=== PATIENT | male | born 1955 | race Hispanic/Latino ===

== ENCOUNTER 2019-01-29 06:00 | Day surgery (SDC) | payer BC ==
[2019-01-27 09:34] LABS: POTASSIUM 4.7 mmol/L (3.5-5.1)
[2019-01-27 09:36] LABS: BASOPHILS % (AUTO) 0.6 % (0.0-5.0); EOSINOPHILS % (AUTO) 2.8 % (0.0-8.0); HEMATOCRIT 45.6 % (42-54); MEAN CORPUSCULAR HEMOGLOBIN 31.8 pg (27.0-33.0); NEUTROPHILS % (AUTO) 48.6 % (40.0-77.0); NUCLEATED RED BLOOD CELLS 0.1 % (0.0-0.19); PLATELET COUNT (AUTO) 270 K/uL (130-400); RED BLOOD CELL COUNT(AUTO) 5.01 MIL/uL (4.50-6.20); RED CELL DISTRIBUTION WIDTH 12.3 % (11.0-15.5); WHITE BLOOD COUNT (AUTO) 5.1 K/uL (4.8-10.8)
[2019-01-27 09:37] VITALS: BP 160/88
[2019-01-27 09:48] LABS: INR 0.96 (0.85-1.15); PARTIAL THROMBOPLASTIN TIME 26.4 SEC (26.3-35.5); PROTHROMBIN TIME 10.1 SEC (9.6-11.6)
[~2019-01-29] VITALS: Ht 180.3 cm; Wt 112.0 kg
[2019-01-29] VITALS (10 sets, daily range): BP systolic 112–165; BP diastolic 74–97
[~2019-01-29 06:00] MED LIST: ASPI-555 PO; SOTA80TA PO
[2019-01-29] MEDS ORDERED: SODIUM CHLORIDE 0.9% 1000ML 1,000 ML IV PRN (06:30)
[2019-01-29] MEDS ORDERED: LIDOCAINE HCL 2% 20ML ONE (07:18)
--- NOTE | 2019-01-29 10:25 | NUR ---
PROCEDURE PT TAKEN TO [facility] [facility] FOR SVT ABLATION VIA BED,NO DISTRESS NOTED. SPOUSE AT BEDSIDE.
[2019-01-29] MEDS ORDERED: ISOPROTERENOL HCL 0.2 MG/ML AMP/VIAL/BAG ONE (10:52)
[2019-01-29] MEDS ORDERED: MEPERIDINE-PF 25 MG/ML SYG ONE (11:11)
[2019-01-29] MEDS ORDERED: MIDAZOLAM HCL 1 MG/ML 2ML VIAL ONE (11:11)
[2019-01-29] MEDS ORDERED: ADENOSINE 3 MG/ML 2ML VIAL IV ONE (12:09)
[2019-01-29] MEDS ORDERED: VERA180T8 PO (13:11)
--- NOTE | 2019-01-29 17:00 | NUR ---
PT DISCHARGED HOME, TOLERATING FLUIDS/FOOD WELL, AMBULATING WELL, VOIDED PRIOR TO DISCHARGE. PT DENIES ANY PAIN, NAUSEA OR DIZZINESS. RIGHT AND LEFT CATHETER GROIN SITE REMAIN, SOFT, NON-TENDER WITHOUT SIGNS OF BLEEDING. PT INSTRUCTED IN ROUTINE AND EMERGENCY CARE OF CATHETER SITE. PRESCRIPTION GIVEN TO SPOUSE. PT AND SPOUSE INSTRUCTED IN NEW MEDICATION REGIME. PT AND SPOUSE REPORT NO FURTHER QUESTIONS AT THIS TIME.
== END 2019-01-29 17:00 | disposition home or self-care (01) ==
LOC: DAH 06:00
PROVIDERS: ATTEND Internal Medicine Cardiovascular Disease
DX: I47.1 Supraventricular tachycardia (principal); I48.91 Unspecified atrial fibrillation; Z98.890 Other specified postprocedural states
CPT/HCPCS: 36415; 80048; 85025; 85610; 85730; 93620; 93621; 93623; A4606; A4649; C1730 ×4; C1894 ×5; J0153; J1644 ×2; J2175; J2250; J3490 ×2; J7030; 99156; 99157

== ENCOUNTER 2019-02-03 13:17 | Emergency (ER) | payer BC ==
[~2019-02-03 13:17] MED LIST changes: -SOTA80TA PO; +VERA180T8 PO
[2019-02-03] MEDS ORDERED: ADENOSINE 3 MG/ML 2ML VIAL IV ONE (13:31)
[2019-02-03 13:49] LABS: BASOPHILS % (AUTO) 0.8 % (0.0-5.0); HEMATOCRIT 46.7 % (42-54)
[2019-02-03 13:54] LABS: EOSINOPHILS % (AUTO) 1.8 % (0.0-8.0); LYMPHOCYTES % (AUTO) 36.8 % (21.0-51.0); MEAN CORPUSCULAR HEMOGLOBIN 31.7 pg (27.0-33.0); MEAN CORPUSCULAR HGB CONC 35.1 g/dL (32.0-36.0); MEAN CORPUSCULAR VOLUME 90.4 fL (79-99); MONOCYTES % (AUTO) 9.5 % (3.0-13.0); NEUTROPHILS % (AUTO) 51.1 % (40.0-77.0); NUCLEATED RED BLOOD CELLS 0.1 % (0.0-0.19); PLATELET COUNT (AUTO) 202 K/uL (130-400); RED BLOOD CELL COUNT(AUTO) 5.17 MIL/uL (4.50-6.20); RED CELL DISTRIBUTION WIDTH 12.7 % (11.0-15.5); WHITE BLOOD COUNT (AUTO) 5.9 K/uL (4.8-10.8)
[2019-02-03 13:55] LABS: CREATININE 1.1 mg/dL (0.5-1.5); MAGNESIUM 1.9 mg/dL (1.80-2.40)
== END 2019-02-03 16:41 | disposition home or self-care (01) ==
LOC: EDH 13:17
DX: I47.1 Supraventricular tachycardia (principal); I10 Essential (primary) hypertension; Z87.891 Personal history of nicotine dependence
CPT/HCPCS: 36415; 80048; 83735; 85025; 93005; J0153

== ENCOUNTER 2020-07-09 16:44 | Emergency (ER) | payer BC ==
[~2020-07-09 16:44] MED LIST changes: -ASPI-555 PO; +ASPI-556 PO; +VERA180T12 PO; -VERA180T8 PO
[2020-07-09] MEDS ORDERED: ADENOSINE 3 MG/ML 2ML VIAL IV ONE (16:55)
[2020-07-09 17:01] LABS: BASOPHILS % (AUTO) 0.8 % (0.0-5.0); EOSINOPHILS % (AUTO) 2.5 % (0.0-8.0); HEMATOCRIT 40.8 % (42-54); LYMPHOCYTES % (AUTO) 38.1 % (21.0-51.0); MEAN CORPUSCULAR HEMOGLOBIN 31.5 pg (27.0-33.0); MEAN CORPUSCULAR HGB CONC 35.5 g/dL (32.0-36.0); MEAN CORPUSCULAR VOLUME 88.7 fL (79-99); MONOCYTES % (AUTO) 9.4 % (3.0-13.0); NEUTROPHILS % (AUTO) 48.9 % (40.0-77.0); PLATELET COUNT (AUTO) 229 K/uL (130-400); RED CELL DISTRIBUTION WIDTH 13.4 % (11.0-15.5); WHITE BLOOD COUNT (AUTO) 6.5 K/uL (4.8-10.8)
[2020-07-09 17:15] LABS: CREATININE 1.2 mg/dL (0.5-1.5); POTASSIUM 3.8 mmol/L (3.5-5.1)
[2020-07-09 17:20] LABS: ALBUMIN 3.9 g/dL (3.5-5.0); BILIRUBIN,TOTAL 0.7 mg/dL (0.2-1.0); TOTAL PROTEIN, SERUM 7.9 g/dL (6.0-8.3)
[2020-07-13] MEDS ORDERED: LISI-613 PO (00:47)
[2020-07-13] MEDS ORDERED: METO-391 (00:47)
== END 2020-07-09 19:14 | disposition home or self-care (01) ==
LOC: EDH 16:44
DX: I47.1 Supraventricular tachycardia (principal); J12.89 Other viral pneumonia; Z20.828 Contact with and (suspected) exposure to other viral communicable diseases; I10 Essential (primary) hypertension; Z87.891 Personal history of nicotine dependence
CPT/HCPCS: 36415; 71045; 80053; 82550; 84484; 85025; 93005 ×2; 96374; 99285; J0153; U0003

== ENCOUNTER 2020-07-12 13:48 | Observation (INO) | payer BC ==
[~2020-07-12] VITALS: Ht 177.8 cm; Wt 104.2 kg
[2020-07-12] MEDS ORDERED: ADENOSINE 3 MG/ML 2ML VIAL IV ONE (13:56)
[2020-07-12] MEDS ORDERED: ASPIRIN 325 MG TABLET ONE (14:01)
[2020-07-12 14:12] LABS: BASOPHILS % (AUTO) 0.7 % (0.0-5.0); EOSINOPHILS % (AUTO) 2.2 % (0.0-8.0); HEMATOCRIT 44.6 % (42-54); LYMPHOCYTES % (AUTO) 39.6 % (21.0-51.0); MEAN CORPUSCULAR HEMOGLOBIN 31.5 pg (27.0-33.0); MEAN CORPUSCULAR HGB CONC 35.7 g/dL (32.0-36.0); MEAN CORPUSCULAR VOLUME 88.5 fL (79-99); MONOCYTES % (AUTO) 7.1 % (3.0-13.0); NEUTROPHILS % (AUTO) 50.1 % (40.0-77.0); PLATELET COUNT (AUTO) 287 K/uL (130-400); RED BLOOD CELL COUNT(AUTO) 5.04 MIL/uL (4.50-6.20); RED CELL DISTRIBUTION WIDTH 13.3 % (11.0-15.5); WHITE BLOOD COUNT (AUTO) 10.1 K/uL (4.8-10.8)
[2020-07-12 14:34] LABS: CREATININE 1.3 mg/dL (0.5-1.5); INR 0.93 (0.85-1.15); PARTIAL THROMBOPLASTIN TIME 25.5 SEC (26.3-35.5); POTASSIUM 3.7 mmol/L (3.5-5.1); PROTHROMBIN TIME 10.1 SEC (9.6-11.6)
[2020-07-12 14:39] LABS: ALBUMIN 4.7 g/dL (3.5-5.0); BILIRUBIN,TOTAL 0.9 mg/dL (0.2-1.0); MAGNESIUM 1.7 mg/dL (1.80-2.40)
[2020-07-12 14:52] LABS: B-TYPE NATRIURETIC PEPTIDE 116 pg/mL (0-100)
[2020-07-12] MEDS ORDERED: MAGNESIUM 2GM PREMIX 50ML 50 ML IV PRN (15:45)
[2020-07-12] MEDS ORDERED: NITROGLYCERIN 0.4 MG SL TAB SL PRN (15:45)
[2020-07-12] MEDS ORDERED: ACETAMINOPHEN 325 MG TAB PO PRN ×2 (15:45)
[2020-07-12] MEDS ORDERED: ONDANSETRON HCL 4 MG/2 ML VIAL IV PRN (15:45)
[2020-07-12] MEDS: FUROSEMIDE 20 MG TABLET PO SCH (16:30)
[2020-07-12] MEDS ORDERED: HYDRALAZINE HCL 20 MG/ML VIAL IV PRN (16:30)
[2020-07-12] MEDS ORDERED: FUROSEMIDE 10 MG/ML 2ML VIAL ONE (17:16)
[2020-07-12] MEDS ORDERED: METOPROLOL TARTRATE 25 MG TAB ONE (17:17)
[2020-07-12] MEDS ORDERED: ENOXAPARIN SODIUM 40 MG/0.4 ML SYRINGE SQ ONE (17:17)
[2020-07-12 17:20] LABS: CHOLESTEROL 191 mg/dL (<200); HDL CHOLESTEROL 100 mg/dL (29-71); LDL DIRECT 116 mg/dL (0-99); TRIGLYCERIDES 218 mg/dL (30-200)
[2020-07-12] MEDS ORDERED: ATORVASTATIN CALCIUM 20 MG TABLET ONE (20:53)
[2020-07-12] MEDS ORDERED: MAGNESIUM 2GM PREMIX 50ML 50 ML IV ONE (20:53)
[2020-07-12] MEDS: METOPROLOL TARTRATE 25 MG TAB PO SCH (21:00)
[2020-07-12] MEDS: ATORVASTATIN CALCIUM 20 MG TABLET PO SCH (21:00)
[2020-07-12] MEDS ORDERED: FUROSEMIDE 20 MG TABLET ONE (22:55)
--- NOTE | 2020-07-13 | NUR ---
Pt arrived to unit in stable condition. pt was placed on telemetry and verified with monitors he is on and in SR. he was given unit and room orientation and admission was completed. Pt is A&Ox3. Pt reports no pain or discomfort. will continue to monitor
[2020-07-13] MEDS ORDERED: METO-391 ×2 (00:47)
[2020-07-13] MEDS ORDERED: LISI-613 PO ×2 (00:47)
[2020-07-13 00:49] VITALS: BP 136/80
[2020-07-13 02:27] LABS: BASOPHILS % (AUTO) 1.1 % (0.0-5.0); EOSINOPHILS % (AUTO) 4.1 % (0.0-8.0); HEMATOCRIT 41.9 % (42-54); LYMPHOCYTES % (AUTO) 48.4 % (21.0-51.0); MEAN CORPUSCULAR HEMOGLOBIN 31.8 pg (27.0-33.0); MEAN CORPUSCULAR HGB CONC 35.8 g/dL (32.0-36.0); MONOCYTES % (AUTO) 8.3 % (3.0-13.0); NEUTROPHILS % (AUTO) 37.9 % (40.0-77.0); PLATELET COUNT (AUTO) 195 K/uL (130-400); RED BLOOD CELL COUNT(AUTO) 4.71 MIL/uL (4.50-6.20); RED CELL DISTRIBUTION WIDTH 13.6 % (11.0-15.5); WHITE BLOOD COUNT (AUTO) 5.7 K/uL (4.8-10.8)
[2020-07-13 02:37] LABS: CRP QUANTITATIVE 11.7 mg/L (0.00-9.0); MAGNESIUM 2.4 mg/dL (1.80-2.40); POTASSIUM 3.9 mmol/L (3.5-5.1)
[2020-07-13 04:00] VITALS: BP 133/72
[2020-07-13] MEDS: FUROSEMIDE 20 MG TABLET PO SCH ×2 (04:02→15:52)
[2020-07-13 08:34] VITALS: BP 124/80
[2020-07-13] MEDS ORDERED: ASPIRIN 325 MG TABLET PO SCH (09:00)
[2020-07-13] MEDS: ENOXAPARIN SODIUM 40 MG/0.4 ML SYRINGE SQ SCH (11:02)
[2020-07-13] MEDS ORDERED: ASPIRIN 81MG TAB.CHEW ONE (11:04)
[2020-07-13] MEDS: METOPROLOL TARTRATE 25 MG TAB PO SCH (11:32)
[2020-07-13 12:20] VITALS: BP 148/95
--- NOTE | 2020-07-13 15:15 | NUR ---
LISA NOTE/IA UNABLE TO SPEAK TO PATIENT IN ROOM, NEXT OF KIN CALLED, [facility]. PER SPOUSE, PATIENT LIVES WITH HER AND THEIR CHILDREN, NO DME IN USE, NO PROVIDER SERVICES, PATIENT IS INDEPENDENT AND DRIVES, HAS USE OF [facility] IN [place] AND FEELS SAFE FOR PATIENT TO RETURN HOME ONCE STABLE. Addendum: 07/13/20 at 1731 by JAQUELINE HARRISON RN CM Amended: Links added.
[2020-07-13] MEDS: VERAPAMIL HCL 240 MG SRTAB PO SCH (15:52)
[2020-07-13 16:35] VITALS: BP 115/82
[2020-07-13 20:46] VITALS: BP 139/84
[2020-07-13] MEDS: ATORVASTATIN CALCIUM 20 MG TABLET PO SCH (21:00)
[2020-07-14 00:02] VITALS: BP 136/76
[2020-07-14 04:10] LABS: CRP QUANTITATIVE 10.4 mg/L (0.00-9.0)
[2020-07-14 04:17] VITALS: BP 120/73
[2020-07-14 04:50] LABS: CREATININE 1.2 mg/dL (0.5-1.5); MAGNESIUM 2.1 mg/dL (1.80-2.40); POTASSIUM 3.9 mmol/L (3.5-5.1)
[2020-07-14 08:43] VITALS: BP 118/75
[2020-07-14] MEDS ORDERED: FUROSEMIDE 20 MG TABLET PO SCH (09:00)
[2020-07-14] MEDS: VERAPAMIL HCL 240 MG SRTAB PO SCH (09:30)
[2020-07-14] MEDS: ENOXAPARIN SODIUM 40 MG/0.4 ML SYRINGE SQ SCH (09:31)
[2020-07-14 11:24] VITALS: BP 132/79
[2020-08-24] MEDS ORDERED: METO-408 PO (13:45)
[2020-08-24] MEDS ORDERED: VERA360C2 PO (13:45)
== END 2020-07-14 11:45 | disposition home or self-care (01) ==
LOC: EDH 13:48 → EDHIP 15:31 → UNDOADMOB 16:54 → EDHIP 16:54 → 4DH 07-13 00:29 → EDHIP 07-13 00:29
PROVIDERS: ADMIT Hospitalist; ATTEND Hospitalist
DX: I47.1 Supraventricular tachycardia (principal); J12.89 Other viral pneumonia; E83.42 Hypomagnesemia; E66.01 Morbid (severe) obesity due to excess calories; I10 Essential (primary) hypertension; I42.1 Obstructive hypertrophic cardiomyopathy; I48.0 Paroxysmal atrial fibrillation; Z86.19 Personal history of other infectious and parasitic diseases; Z79.82 Long term (current) use of aspirin; Z79.899 Other long term (current) drug therapy; Z87.891 Personal history of nicotine dependence
CPT/HCPCS: 36415 ×3; 71045; 80048 ×2; 80053; 80061 ×2; 82550; 82728 ×2; 83615 ×2; 83735 ×3; 83880; 84443; 84484 ×3; 85025 ×2; 85378 ×2; 85610; 85730; 86140 ×2; 87426; 93005 ×3; 96372 ×2; 99285; G0378 ×10; J0153; J1650 ×3; J1940; J3475; U0003

== ENCOUNTER 2020-08-08 10:11 | Emergency (ER) | payer BC ==
[~2020-08-08 10:11] MED LIST changes: +LISI-613 PO; -VERA180T12 PO
[2020-08-08] MEDS ORDERED: SODIUM CHLORIDE 0.9% 1000ML 1,000 ML IV ONE (10:12)
[2020-08-08] MEDS ORDERED: ADENOSINE 3 MG/ML 2ML VIAL IV ONE (10:13)
[2020-08-08] MEDS ORDERED: ASPIRIN 325 MG TABLET ONE (10:41)
[2020-08-08 10:59] LABS: BASOPHILS % (AUTO) 0.4 % (0.0-5.0); EOSINOPHILS % (AUTO) 1.7 % (0.0-8.0); HEMATOCRIT 41.6 % (42-54); LYMPHOCYTES % (AUTO) 23.6 % (21.0-51.0); MEAN CORPUSCULAR HEMOGLOBIN 31.8 pg (27.0-33.0); MEAN CORPUSCULAR HGB CONC 36.5 g/dL (32.0-36.0); MONOCYTES % (AUTO) 6.3 % (3.0-13.0); NEUTROPHILS % (AUTO) 67.7 % (40.0-77.0); PLATELET COUNT (AUTO) 169 K/uL (130-400); RED BLOOD CELL COUNT(AUTO) 4.78 MIL/uL (4.50-6.20); RED CELL DISTRIBUTION WIDTH 12.1 % (11.0-15.5); WHITE BLOOD COUNT (AUTO) 6.9 K/uL (4.8-10.8)
[2020-08-08 11:08] LABS: CREATININE 1.2 mg/dL (0.5-1.5); POTASSIUM 3.8 mmol/L (3.5-5.1)
[2020-08-08 11:13] LABS: ALBUMIN 4.1 g/dL (3.5-5.0); TOTAL PROTEIN, SERUM 7.5 g/dL (6.0-8.3)
[2020-08-08 11:52] LABS: INR 0.96 (0.85-1.15); PARTIAL THROMBOPLASTIN TIME 24.7 SEC (26.3-35.5); PROTHROMBIN TIME 10.4 SEC (9.6-11.6)
[2020-08-08] MEDS ORDERED: METOPROLOL TARTRATE 25 MG TAB ONE (12:01)
== END 2020-08-08 12:22 | disposition home or self-care (01) ==
LOC: EDH 10:11
DX: I47.1 Supraventricular tachycardia (principal); I10 Essential (primary) hypertension; E66.9 Obesity, unspecified; R79.1 Abnormal coagulation profile; Z86.19 Personal history of other infectious and parasitic diseases
CPT/HCPCS: 36415; 71045; 80053; 82550; 84484; 85025; 85610; 85730; 93005; 96361; 96374; 99285; J0153; J7030

== ENCOUNTER 2020-08-26 05:55 | Observation (INO) | payer BC ==
[2020-08-23 10:53] LABS: BASOPHILS % (AUTO) 0.7 % (0.0-5.0); EOSINOPHILS % (AUTO) 3.4 % (0.0-8.0); HEMATOCRIT 41.4 % (42-54); LYMPHOCYTES % (AUTO) 39.1 % (21.0-51.0); MEAN CORPUSCULAR HEMOGLOBIN 31.6 pg (27.0-33.0); MEAN CORPUSCULAR VOLUME 85.5 fL (79-99); MONOCYTES % (AUTO) 7.5 % (3.0-13.0); NEUTROPHILS % (AUTO) 48.8 % (40.0-77.0); PLATELET COUNT (AUTO) 180 K/uL (130-400); RED BLOOD CELL COUNT(AUTO) 4.84 MIL/uL (4.50-6.20); RED CELL DISTRIBUTION WIDTH 11.7 % (11.0-15.5); WHITE BLOOD COUNT (AUTO) 4.4 K/uL (4.8-10.8)
[2020-08-23 11:00] LABS: CREATININE 1.2 mg/dL (0.5-1.5); POTASSIUM 4.4 mmol/L (3.5-5.1)
[2020-08-23 11:02] LABS: INR 0.95 (0.85-1.15); PROTHROMBIN TIME 10.3 SEC (9.6-11.6)
[~2020-08-26] VITALS: Ht 180.3 cm; Wt 108.0 kg
[2020-08-26] VITALS (10 sets, daily range): BP systolic 107–158; BP diastolic 68–92
[~2020-08-26 05:55] MED LIST changes: +METO-408 PO; +SODIUM CHLORIDE 0.9% 500ML 500 ML IV SCH; +VERA360C2 PO
[2020-08-26] MEDS ORDERED: SODIUM CHLORIDE 0.9% 1000ML 1,000 ML IV ONE (07:03)
--- NOTE | 2020-08-26 07:33 | NUR ---
ASSESSMENT PT HERE FOR PROCEDURE. DENIES ANY PAIN. SOB ON AMBULATION. STATES THIS IS NORMAL FOR HIM.
--- NOTE | 2020-08-26 07:49 | NUR ---
PROCEDURE PT TAKEN TO PROCEDURE VIA [employer] STAFF ARETHA RYAN.
[2020-08-26] MEDS ORDERED: HEPARIN SODIUM 1000UNIT/ML 10ML VIAL ONE (08:08)
[2020-08-26] MEDS ORDERED: LIDOCAINE HCL 2% 20ML ONE (08:09)
[2020-08-26] MEDS ORDERED: ISOPROTERENOL HCL 0.2 MG/ML AMP/VIAL/BAG ONE (08:12)
[2020-08-26] MEDS ORDERED: MEPERIDINE-PF 25 MG/ML SYG ONE ×2 (08:13→09:06)
[2020-08-26] MEDS ORDERED: MIDAZOLAM HCL 1 MG/ML 2ML VIAL ONE ×2 (08:13→09:06)
[2020-08-27 00:20] VITALS: BP 132/83
[2020-08-27 03:54] VITALS: BP 116/81
[2020-08-27 07:30] VITALS: BP 117/79
[2020-08-27] MEDS ORDERED: ASPIRIN 81 MG EC TAB PO SCH (09:00)
[2020-08-27] MEDS ORDERED: LISINOPRIL 20 MG TABLET PO SCH (09:00)
== END 2020-08-27 11:15 | disposition home or self-care (01) ==
LOC: DAH 05:55 → DAHIP 05:56 → 4DH 11:54
PROVIDERS: ADMIT Internal Medicine Cardiovascular Disease; ATTEND Internal Medicine Cardiovascular Disease
DX: I47.1 Supraventricular tachycardia (principal)
CPT/HCPCS: 36415; 80048; 85025; 85610; 85730; 93005; 93613; 93621; 93623; 93653; 96360; 96361; A4215; A4216; A4221; A4222; A4223 ×3; A4606; A4649 ×2; A4663; C1730 ×4; C1732; C1894 ×5; G0378 ×20; J1644 ×2; J2175 ×2; J2250 ×2; J3490 ×2; J7030; 99156; 99157

== ENCOUNTER 2020-09-20 10:01 | Emergency (ER) | payer BC ==
[~2020-09-20 10:01] MED LIST changes: -METO-408 PO; -SODIUM CHLORIDE 0.9% 500ML 500 ML IV SCH; -VERA360C2 PO
[2020-09-20 11:33] LABS: BASOPHILS % (AUTO) 0.6 % (0.0-5.0); EOSINOPHILS % (AUTO) 2.8 % (0.0-8.0); HEMATOCRIT 43.2 % (42-54); LYMPHOCYTES % (AUTO) 38.6 % (21.0-51.0); MEAN CORPUSCULAR HEMOGLOBIN 31.3 pg (27.0-33.0); MEAN CORPUSCULAR HGB CONC 36.6 g/dL (32.0-36.0); MEAN CORPUSCULAR VOLUME 85.5 fL (79-99); NEUTROPHILS % (AUTO) 49.4 % (40.0-77.0); PLATELET COUNT (AUTO) 165 K/uL (130-400); RED BLOOD CELL COUNT(AUTO) 5.05 MIL/uL (4.50-6.20); RED CELL DISTRIBUTION WIDTH 11.9 % (11.0-15.5)
[2020-09-20 12:13] LABS: INR 1.12 (0.85-1.15)
[2020-09-20 12:18] LABS: CREATININE 1.2 mg/dL (0.5-1.5); POTASSIUM 4.4 mmol/L (3.5-5.1)
[2020-09-20 12:22] LABS: ALBUMIN 4.1 g/dL (3.5-5.0); BILIRUBIN,TOTAL 0.9 mg/dL (0.2-1.0)
[2020-09-20] MEDS ORDERED: IOHEXOL-350 75 ML VIAL IV ONE (12:35)
== END 2020-09-20 14:35 | disposition home or self-care (01) ==
LOC: EDH 10:01
DX: R07.89 Other chest pain (principal); R06.02 Shortness of breath; R00.2 Palpitations; I10 Essential (primary) hypertension; Z79.899 Other long term (current) drug therapy; Z87.891 Personal history of nicotine dependence
CPT/HCPCS: 36415; 71045; 71275; 80053; 82550; 84484; 85025; 85378; 85610; 85730; 93005; 99285; Q9967

== ENCOUNTER 2020-11-23 05:43 | Emergency (ER) | payer BC ==
[2020-11-23] MEDS ORDERED: ADENOSINE 3 MG/ML 2ML VIAL IV ONE (05:49)
[2020-11-23] MEDS ORDERED: METOPROLOL TARTRATE 25 MG TAB ONE (06:14)
[2020-11-23 06:27] LABS: ALBUMIN 4.3 g/dL (3.5-5.0); BILIRUBIN,TOTAL 1.1 mg/dL (0.2-1.0); CREATININE 0.9 mg/dL (0.5-1.5); POTASSIUM 4.9 mmol/L (3.5-5.1); TOTAL PROTEIN, SERUM 7.5 g/dL (6.0-8.3)
[2020-11-23 07:34] LABS: AMPHET/METH SCREEN,URINE NEGATIVE (NEGATIVE); BARBITURATE SCREEN, URINE NEGATIVE (NEGATIVE); BENZODIAZEPINES SCREEN,URINE NEGATIVE (NEGATIVE); CANNABINOID SCREEN,URINE NEGATIVE (NEGATIVE); COCAINE SCREEN,URINE NEGATIVE (NEGATIVE); OPIATE SCREEN,URINE NEGATIVE (NEGATIVE); PHENCYCLIDINE SCREEN,URINE NEGATIVE (NEGATIVE)
[2020-11-23 07:35] LABS: BASOPHILS % (AUTO) 0.5 % (0.0-5.0); HEMATOCRIT 43.5 % (42-54); LYMPHOCYTES % (AUTO) 42.2 % (21.0-51.0); MEAN CORPUSCULAR HEMOGLOBIN 31.1 pg (27.0-33.0); MEAN CORPUSCULAR HGB CONC 35.6 g/dL (32.0-36.0); MEAN CORPUSCULAR VOLUME 87.3 fL (79-99); MONOCYTES % (AUTO) 9.2 % (3.0-13.0); NEUTROPHILS % (AUTO) 45.8 % (40.0-77.0); PLATELET COUNT (AUTO) 171 K/uL (130-400); RED BLOOD CELL COUNT(AUTO) 4.98 MIL/uL (4.50-6.20); RED CELL DISTRIBUTION WIDTH 12.3 % (11.0-15.5); WHITE BLOOD COUNT (AUTO) 3.9 K/uL (4.8-10.8)
[2020-11-23 08:11] LABS: B-TYPE NATRIURETIC PEPTIDE 19 pg/mL (0-100)
== END 2020-11-23 09:47 | disposition home or self-care (01) ==
LOC: EDH 05:43
DX: R07.89 Other chest pain (principal); I10 Essential (primary) hypertension
CPT/HCPCS: 36415; 71045; 80053; 80305; 82550; 83880; 84484; 85025; 93005 ×2; 96361; 96374; 99285; J0153

== ENCOUNTER 2020-11-26 19:01 | Emergency (ER) | payer BC ==
[2020-11-26] MEDS ORDERED: NITROGLYCERIN 1GM/1 INCH PACKET TD ONE (19:14)
[2020-11-26] MEDS ORDERED: ASPIRIN 325 MG TABLET ONE (19:14)
[2020-11-26] MEDS ORDERED: ADENOSINE 3 MG/ML 2ML VIAL IV ONE (19:15)
[2020-11-26 19:21] LABS: BASOPHILS % (AUTO) 0.7 % (0.0-5.0); EOSINOPHILS % (AUTO) 2.5 % (0.0-8.0); LYMPHOCYTES % (AUTO) 52.4 % (21.0-51.0); MEAN CORPUSCULAR HEMOGLOBIN 31.4 pg (27.0-33.0); MEAN CORPUSCULAR VOLUME 87.4 fL (79-99); NEUTROPHILS % (AUTO) 37.1 % (40.0-77.0); PLATELET COUNT (AUTO) 255 K/uL (130-400); RED BLOOD CELL COUNT(AUTO) 5.38 MIL/uL (4.50-6.20); RED CELL DISTRIBUTION WIDTH 12.3 % (11.0-15.5); WHITE BLOOD COUNT (AUTO) 7.3 K/uL (4.8-10.8)
[2020-11-26 19:24] LABS: INR 1.26 (0.85-1.15); PROTHROMBIN TIME 13.2 SEC (9.6-11.6)
[2020-11-26 19:26] LABS: PARTIAL THROMBOPLASTIN TIME 30.5 SEC (26.3-35.5)
[2020-11-26 19:28] LABS: CREATININE 1.2 mg/dL (0.5-1.5)
[2020-11-26 19:33] LABS: ALBUMIN 4.5 g/dL (3.5-5.0); BILIRUBIN,TOTAL 0.8 mg/dL (0.2-1.0); TOTAL PROTEIN, SERUM 8.1 g/dL (6.0-8.3)
[2020-11-26 21:19] LABS: APPEARANCE,URINE Clear (CLEAR); BILIRUBIN,URINE Negative (NEGATIVE); COLOR,URINE Yellow (YELLOW); GLUCOSE, URINE (UA) TRACE mg/dL (NEGATIVE); KETONES,URINE Negative (NEGATIVE); LEUKOCYTE ESTERASE ,URINE Negative (NEGATIVE); NITRATE,URINE Negative (NEGATIVE); OCCULT BLOOD,URINE Negative (NEGATIVE); PH,URINE 6.5 (5.0-8.0); PROTEIN,URINE POS 1+ mg/dL (NEGATIVE)
[2020-11-26 21:27] LABS: AMPHET/METH SCREEN,URINE NEGATIVE (NEGATIVE); BARBITURATE SCREEN, URINE NEGATIVE (NEGATIVE); BENZODIAZEPINES SCREEN,URINE NEGATIVE (NEGATIVE); CANNABINOID SCREEN,URINE NEGATIVE (NEGATIVE); COCAINE SCREEN,URINE NEGATIVE (NEGATIVE); OPIATE SCREEN,URINE NEGATIVE (NEGATIVE); PHENCYCLIDINE SCREEN,URINE NEGATIVE (NEGATIVE)
[2020-11-26 21:40] LABS: BACTERIA,URINE Few /HPF (None Seen); MUCUS,URINE Moderate LPF (None Seen); RBC,URINE 0-1 /HPF (0-1); SQUAMOUS EPITHELIAL CELL,UR Few /HPF (0-2)
== END 2020-11-26 22:57 | disposition home or self-care (01) ==
LOC: EDH 19:01
DX: I20.9 Angina pectoris, unspecified (principal); I47.1 Supraventricular tachycardia; I10 Essential (primary) hypertension; Z86.19 Personal history of other infectious and parasitic diseases
CPT/HCPCS: 36415; 80053; 80305; 81001; 84484; 85025; 85610; 85730; 93005 ×2; 96374; 99285; J0153

== ENCOUNTER 2021-01-08 07:39 | Emergency (ER) | payer BC ==
[~2021-01-08 07:39] MED LIST changes: -LISI-613 PO; +LISI20TA24 PO
[2021-01-08] MEDS ORDERED: SODIUM CHLORIDE 0.9% 1000ML 1,000 ML IV ONE (07:49)
[2021-01-08] MEDS ORDERED: ADENOSINE 3 MG/ML 2ML VIAL IV ONE (08:00)
[2021-01-08 08:11] LABS: BASOPHILS % (AUTO) 0.3 % (0.0-5.0); EOSINOPHILS % (AUTO) 1.2 % (0.0-8.0); HEMATOCRIT 46.5 % (42-54); MEAN CORPUSCULAR HGB CONC 35.7 g/dL (32.0-36.0); MEAN CORPUSCULAR VOLUME 86.8 fL (79-99); MONOCYTES % (AUTO) 5.7 % (3.0-13.0); NEUTROPHILS % (AUTO) 49.5 % (40.0-77.0); PLATELET COUNT (AUTO) 243 K/uL (130-400); RED BLOOD CELL COUNT(AUTO) 5.36 MIL/uL (4.50-6.20); RED CELL DISTRIBUTION WIDTH 11.8 % (11.0-15.5); WHITE BLOOD COUNT (AUTO) 7.2 K/uL (4.8-10.8)
[2021-01-08 08:19] LABS: INR 0.98 (0.85-1.15); PROTHROMBIN TIME 10.7 SEC (9.6-11.6)
[2021-01-08 08:20] LABS: PARTIAL THROMBOPLASTIN TIME 25.5 SEC (26.3-35.5)
[2021-01-08 08:21] LABS: ALBUMIN 4.7 g/dL (3.5-5.0); BILIRUBIN,TOTAL 0.9 mg/dL (0.2-1.0); CREATININE 1.2 mg/dL (0.5-1.5); POTASSIUM 4.7 mmol/L (3.5-5.1); TOTAL PROTEIN, SERUM 8.5 g/dL (6.0-8.3)
[2021-01-08 08:41] LABS: B-TYPE NATRIURETIC PEPTIDE 24 pg/mL (0-100)
[2021-01-08 10:06] LABS: APPEARANCE,URINE Clear (CLEAR); BILIRUBIN,URINE Negative (NEGATIVE); COLOR,URINE Yellow (YELLOW); GLUCOSE, URINE (UA) Negative (NEGATIVE); KETONES,URINE Negative (NEGATIVE); LEUKOCYTE ESTERASE ,URINE Negative (NEGATIVE); NITRATE,URINE Negative (NEGATIVE); OCCULT BLOOD,URINE Negative (NEGATIVE); PROTEIN,URINE Negative (NEGATIVE)
== END 2021-01-08 13:15 | disposition home or self-care (01) ==
LOC: EDH 07:39
DX: I47.1 Supraventricular tachycardia (principal); I10 Essential (primary) hypertension; Z87.891 Personal history of nicotine dependence
CPT/HCPCS: 36415; 71045; 80053; 81003; 82550; 83880; 84484; 85025; 85610; 85730; 93005 ×2; 96374; 99285; J0153; J7030

== ENCOUNTER 2021-03-15 14:35 | Inpatient (IN) | payer BC ==
[~2021-03-15] VITALS: Ht 180.3 cm; Wt 104.3 kg
[2021-03-15] MEDS ORDERED: ADENOSINE 6MG VIAL IV ONE (14:41)
[2021-03-15 14:59] LABS: BASOPHILS % (AUTO) 0.7 % (0.0-5.0); EOSINOPHILS % (AUTO) 1.2 % (0.0-8.0); HEMATOCRIT 45.9 % (42-54); LYMPHOCYTES % (AUTO) 46.7 % (21.0-51.0); MEAN CORPUSCULAR HEMOGLOBIN 30.6 pg (27.0-33.0); MEAN CORPUSCULAR HGB CONC 35.7 g/dL (32.0-36.0); MEAN CORPUSCULAR VOLUME 85.6 fL (79-99); MONOCYTES % (AUTO) 6.6 % (3.0-13.0); NEUTROPHILS % (AUTO) 44.5 % (40.0-77.0); PLATELET COUNT (AUTO) 247 K/uL (130-400); RED BLOOD CELL COUNT(AUTO) 5.36 MIL/uL (4.50-6.20); RED CELL DISTRIBUTION WIDTH 12.4 % (11.0-15.5)
[2021-03-15 15:25] LABS: INR 0.98 (0.85-1.15); PROTHROMBIN TIME 10.7 SEC (9.6-11.6)
[2021-03-15 15:26] LABS: PARTIAL THROMBOPLASTIN TIME 24.8 SEC (26.3-35.5)
[2021-03-15 15:32] LABS: ALBUMIN 4.4 g/dL (3.5-5.0); BILIRUBIN,TOTAL 0.9 mg/dL (0.2-1.0); CREATININE 1.4 mg/dL (0.5-1.5); TOTAL PROTEIN, SERUM 7.9 g/dL (6.0-8.3)
[2021-03-15 16:15] LABS: APPEARANCE,URINE Clear (CLEAR); BILIRUBIN,URINE Negative (NEGATIVE); COLOR,URINE Yellow (YELLOW); GLUCOSE, URINE (UA) Negative (NEGATIVE); KETONES,URINE Negative (NEGATIVE); LEUKOCYTE ESTERASE ,URINE Negative (NEGATIVE); NITRATE,URINE Negative (NEGATIVE); OCCULT BLOOD,URINE Negative (NEGATIVE); PROTEIN,URINE POS 1+ mg/dL (NEGATIVE); UROBILINOGEN,URINE 0.2 mg/dL (0.2-1.0)
[2021-03-15 16:35] LABS: RBC,URINE 0-1 /HPF (0-1); WBC,URINE 0-1 /HPF (0-1)
[2021-03-15 16:39] LABS: BACTERIA,URINE Few /HPF (None Seen); SQUAMOUS EPITHELIAL CELL,UR Rare /HPF (0-2)
[2021-03-15] MEDS ORDERED: ACETAMINOPHEN 325 MG TAB PO PRN (18:15)
[2021-03-15] MEDS ORDERED: DEXTROSE 50%-WATER 50 ML DISP.SYRIN IV PRN (18:15)
[2021-03-15] MEDS ORDERED: GLUCAGON 1MG KIT 1 MG ML IM PRN (18:15)
[2021-03-15] MEDS ORDERED: ONDANSETRON 4MG INJ IVP PRN (18:15)
[2021-03-15] MEDS: ENOXAPARIN SODIUM 30 MG/0.3 ML SQ SCH (19:15)
[2021-03-15] MEDS ORDERED: METOPROLOL SUCCINATE 50 MG TAB.SR.24H PO SCH (19:16)
[2021-03-15] MEDS: INSULIN HUMULIN R 100 UNIT/ML 3ML SQ SCH (21:00)
[2021-03-15] MEDS: FLECAINIDE ACETATE 100 MG TABLET PO SCH (21:00)
[2021-03-15] MEDS ORDERED: INSULIN HUMULIN R 100 UNIT/ML 3ML ONE (21:05)
[2021-03-15 23:12] VITALS: BP 124/84
[2021-03-15] MEDS ORDERED: FLEC50TA3 PO (23:22)
[2021-03-15] MEDS ORDERED: ZINC100T2 PO (23:22)
[2021-03-15] MEDS ORDERED: METO-408 PO (23:22)
[2021-03-15 23:52] VITALS: BP 137/102
[2021-03-16] VITALS (7 sets, daily range): BP systolic 112–138; BP diastolic 73–90
[2021-03-16 04:34] LABS: BASOPHILS % (AUTO) 0.5 % (0.0-5.0); EOSINOPHILS % (AUTO) 2.4 % (0.0-8.0); HEMATOCRIT 40.1 % (42-54); LYMPHOCYTES % (AUTO) 41.9 % (21.0-51.0); MEAN CORPUSCULAR HEMOGLOBIN 30.1 pg (27.0-33.0); MEAN CORPUSCULAR HGB CONC 35.2 g/dL (32.0-36.0); MEAN CORPUSCULAR VOLUME 85.7 fL (79-99); MONOCYTES % (AUTO) 8.2 % (3.0-13.0); NEUTROPHILS % (AUTO) 46.8 % (40.0-77.0); PLATELET COUNT (AUTO) 162 K/uL (130-400); RED BLOOD CELL COUNT(AUTO) 4.68 MIL/uL (4.50-6.20); RED CELL DISTRIBUTION WIDTH 12.5 % (11.0-15.5); WHITE BLOOD COUNT (AUTO) 6.2 K/uL (4.8-10.8)
[2021-03-16 04:48] LABS: HEMOGLOBIN A1C 8.3 % (4.0-6.0)
[2021-03-16 04:59] LABS: ALBUMIN 3.7 g/dL (3.5-5.0); BILIRUBIN,TOTAL 1.1 mg/dL (0.2-1.0); CREATININE 1.2 mg/dL (0.5-1.5); MAGNESIUM 2.1 mg/dL (1.80-2.40); POTASSIUM 4.1 mmol/L (3.5-5.1); THYROID STIMULATING HORMONE 2.24 uIU/mL (0.36-3.74); TOTAL PROTEIN, SERUM 6.6 g/dL (6.0-8.3)
[2021-03-16] MEDS: INSULIN HUMULIN R 100 UNIT/ML 3ML SQ SCH ×4 (05:13→20:05)
[2021-03-16] MEDS: FLECAINIDE ACETATE 100 MG TABLET PO SCH ×2 (09:02→19:16)
[2021-03-16] MEDS: ASPIRIN 81 MG EC TAB PO SCH (09:02)
[2021-03-16] MEDS: LISINOPRIL 20 MG TABLET PO SCH (09:03)
[2021-03-16] MEDS: ZINC SULFATE 220 CAPSULE PO SCH (09:03)
[2021-03-16] MEDS: ENOXAPARIN SODIUM 30 MG/0.3 ML SQ SCH (09:05)
[2021-03-16] MEDS ORDERED: METOPROLOL SUCCINATE 50 MG TAB.SR.24H PO ONE (18:52)
[2021-03-16] MEDS ORDERED: METOPROLOL SUCCINATE 50 MG TAB.SR.24H PO SCH (21:00)
[2021-03-17] VITALS (11 sets, daily range): BP systolic 93–135; BP diastolic 64–82
[2021-03-17 05:35] LABS: BASOPHILS % (AUTO) 0.7 % (0.0-5.0); EOSINOPHILS % (AUTO) 1.7 % (0.0-8.0); HEMATOCRIT 40.8 % (42-54); LYMPHOCYTES % (AUTO) 44.3 % (21.0-51.0); MEAN CORPUSCULAR HEMOGLOBIN 30.4 pg (27.0-33.0); MEAN CORPUSCULAR HGB CONC 35.3 g/dL (32.0-36.0); MEAN CORPUSCULAR VOLUME 86.1 fL (79-99); MONOCYTES % (AUTO) 7.5 % (3.0-13.0); NEUTROPHILS % (AUTO) 45.6 % (40.0-77.0); PLATELET COUNT (AUTO) 158 K/uL (130-400); RED BLOOD CELL COUNT(AUTO) 4.74 MIL/uL (4.50-6.20); RED CELL DISTRIBUTION WIDTH 12.2 % (11.0-15.5); WHITE BLOOD COUNT (AUTO) 5.4 K/uL (4.8-10.8)
[2021-03-17] MEDS: INSULIN HUMULIN R 100 UNIT/ML 3ML SQ SCH ×4 (05:35→20:19)
[2021-03-17 05:57] LABS: CREATININE 1.1 mg/dL (0.5-1.5); MAGNESIUM 1.9 mg/dL (1.80-2.40); POTASSIUM 4.1 mmol/L (3.5-5.1)
[2021-03-17] MEDS: ENOXAPARIN SODIUM 30 MG/0.3 ML SQ SCH (08:21)
[2021-03-17] MEDS: ASPIRIN 81 MG EC TAB PO SCH (09:00)
[2021-03-17] MEDS: ZINC SULFATE 220 CAPSULE PO SCH (09:00)
[2021-03-17] MEDS: LISINOPRIL 20 MG TABLET PO SCH (09:00)
[2021-03-17] MEDS: FLECAINIDE ACETATE 100 MG TABLET PO SCH (09:26)
[2021-03-17] MEDS ORDERED: IOHEXOL 350 MG/ML 100ML INFUS..BTL IV ONE (09:39)
[2021-03-17] MEDS ORDERED: IOHEXOL-350 50ML VIAL IV ONE (09:39)
[2021-03-17] MEDS ORDERED: BIVALIRUDIN 250 MG/VIAL IV ONE (09:39)
[2021-03-17] MEDS ORDERED: NITROGLYCERIN 2 MG VIAL IV ONE (09:39)
[2021-03-17 09:40] LABS: INR 1.02 (0.85-1.15); PROTHROMBIN TIME 11.1 SEC (9.6-11.6)
[2021-03-17] MEDS ORDERED: FENTANYL CITRATE PF 50 MCG/1 ML 2ML VIAL ONE (09:40)
[2021-03-17] MEDS ORDERED: LIDOCAINE HCL 400MG/20ML VIAL ONE (09:40)
[2021-03-17] MEDS ORDERED: MIDAZOLAM HCL 1 MG/ML 2ML VIAL ONE (09:40)
[2021-03-17 09:42] LABS: PARTIAL THROMBOPLASTIN TIME 25.3 SEC (26.3-35.5)
[2021-03-17] MEDS ORDERED: ADENOSINE 90MG VIAL IV ONE (11:06)
[2021-03-17] MEDS ORDERED: HEPARIN 10,000 UNIT/10ML (1,000 UNIT/ML) VIAL ONE (11:10)
[2021-03-17] MEDS ORDERED: 0.9%NACL 1000ML 1,000 ML IV SCH (11:45)
[2021-03-17] MEDS ORDERED: METO50TA9 PO (12:08)
[2021-03-17] MEDS ORDERED: ATOR40TA69 PO (12:15)
[2021-03-17] MEDS: METOPROLOL SUCCINATE 50 MG TAB.SR.24H PO SCH (12:45)
[2021-03-17 12:57] LABS: CHOLESTEROL 172 mg/dL (<200); HDL CHOLESTEROL 125 mg/dL (29-71); LDL DIRECT 92 mg/dL (0-99); TRIGLYCERIDES 145 mg/dL (30-200)
[2021-03-17] MEDS ORDERED: FLECAINIDE ACETATE 100 MG TABLET PO SCH (17:00)
[2021-03-17] MEDS: PREDNISONE 20 MG TABLET PO SCH (17:02)
[2021-03-17] MEDS ORDERED: ATORVASTATIN 40 MG TABLET ONE (19:04)
[2021-03-17] MEDS ORDERED: ATORVASTATIN 40 MG TABLET PO SCH (21:00)
[2021-03-17] MEDS ORDERED: ATORVASTATIN 20 MG TABLET PO SCH (21:00)
[2021-03-18] VITALS: BP 112/71
[2021-03-18 04:00] VITALS: BP 109/71
[2021-03-18 04:04] LABS: HEMATOCRIT 40.7 % (42-54); MEAN CORPUSCULAR HEMOGLOBIN 31.8 pg (27.0-33.0); MEAN CORPUSCULAR HGB CONC 36.6 g/dL (32.0-36.0); MEAN CORPUSCULAR VOLUME 86.8 fL (79-99); PLATELET COUNT (AUTO) 185 K/uL (130-400); RED BLOOD CELL COUNT(AUTO) 4.69 MIL/uL (4.50-6.20); RED CELL DISTRIBUTION WIDTH 12.2 % (11.0-15.5); WHITE BLOOD COUNT (AUTO) 7.2 K/uL (4.8-10.8)
[2021-03-18 04:17] LABS: CREATININE 1.2 mg/dL (0.5-1.5)
[2021-03-18] MEDS: INSULIN HUMULIN R 100 UNIT/ML 3ML SQ SCH ×2 (05:54→11:46)
[2021-03-18 08:00] VITALS: BP 128/78
[2021-03-18] MEDS: LISINOPRIL 20 MG TABLET PO SCH (08:23)
[2021-03-18] MEDS: ASPIRIN 81 MG EC TAB PO SCH (08:24)
[2021-03-18] MEDS: PREDNISONE 20 MG TABLET PO SCH (08:25)
[2021-03-18] MEDS: ZINC SULFATE 220 CAPSULE PO SCH (08:25)
[2021-03-18] MEDS: FLECAINIDE ACETATE 100 MG TABLET PO SCH (08:25)
[2021-03-18] MEDS: METOPROLOL SUCCINATE 50 MG TAB.SR.24H PO SCH (08:25)
[2021-03-18] MEDS ORDERED: PRED20TA3 PO (08:44)
[2021-03-18 11:00] VITALS: BP 119/78
[2021-03-18] MEDS ORDERED: FLEC50TA3 PO (12:58)
[2021-03-18] MEDS ORDERED: GLIP2.5T17 PO (13:01)
[2021-03-18] MEDS ORDERED: METF-444 PO (13:01)
== END 2021-03-18 16:06 | disposition home or self-care (01) | DRG 287 ==
LOC: EDH 14:35 → EDHIP 17:45 → 4AH 23:22
PROVIDERS: ADMIT Internal Medicine; ATTEND Internal Medicine
PROC: 4A023N7 Measurement of Cardiac Sampling and Pressure, Left Heart, Percutaneous Approach (ICD-10-PCS; principal; 2021-03-17)
PROC: B2111ZZ Fluoroscopy of Multiple Coronary Arteries using Low Osmolar Contrast (ICD-10-PCS; 2021-03-17)
PROC: B2151ZZ Fluoroscopy of Left Heart using Low Osmolar Contrast (ICD-10-PCS; 2021-03-17)
PROC: 4A033BC Measurement of Arterial Pressure, Coronary, Percutaneous Approach (ICD-10-PCS; 2021-03-17)
PROC: B41F1ZZ Fluoroscopy of Right Lower Extremity Arteries using Low Osmolar Contrast (ICD-10-PCS; 2021-03-17)
DX: I47.1 Supraventricular tachycardia (principal); I42.1 Obstructive hypertrophic cardiomyopathy; I48.0 Paroxysmal atrial fibrillation; E66.01 Morbid (severe) obesity due to excess calories; Z20.822 Contact with and (suspected) exposure to COVID-19; E78.2 Mixed hyperlipidemia; F41.9 Anxiety disorder, unspecified; I10 Essential (primary) hypertension; G47.33 Obstructive sleep apnea (adult) (pediatric); Z68.33 Body mass index [BMI] 33.0-33.9, adult; Z79.82 Long term (current) use of aspirin; Z79.899 Other long term (current) drug therapy; Z86.711 Personal history of pulmonary embolism; Z86.73 Personal history of transient ischemic attack (TIA), and cerebral infarction without residual deficits; Z86.16 Personal history of COVID-19; Z83.3 Family history of diabetes mellitus; Z82.49 Family history of ischemic heart disease and other diseases of the circulatory system; R73.9 Hyperglycemia, unspecified; I25.119 Atherosclerotic heart disease of native coronary artery with unspecified angina pectoris
CPT/HCPCS: 36415; 71045; 71250; 80048; 80053; 80061; 81001; 82550; 82948; 83036; 83735; 83880; 84443; 84484; 85025; 85027; 85378; 85610; 85730; 87426; 93005; 93306; 93356; 93458; 93571; 94010; 99156; 99157; 99291; C1760; C1887; C1894; G0378; J0153; J0583; J1644; J1650; J1815; J2250; J3010; J3490; Q9967; U0003

== ENCOUNTER 2021-04-25 23:35 | Observation (INO) | payer BC ==
[~2021-04-25] VITALS: Ht 180.3 cm; Wt 108.9 kg
[~2021-04-25 23:35] MED LIST changes: +ATOR40TA69 PO; +FLEC50TA3 PO; +GLIP2.5T17 PO; +METF-444 PO; +METO50TA9 PO; +PRED20TA3 PO; +ZINC100T2 PO
[2021-04-26] MEDS ORDERED: ADENOSINE 6MG VIAL IV ONE (00:13)
[2021-04-26] MEDS ORDERED: ASPIRIN 325 MG TABLET ONE (00:14)
[2021-04-26] MEDS ORDERED: DILTIAZEM 125 MG/25 ML INJ IV ONE (00:22)
[2021-04-26] MEDS ORDERED: DILTIAZEM 50MG VIAL IV ONE (00:22)
[2021-04-26] MEDS ORDERED: 0.9%NACL 100ML 100 ML IV ONE (00:22)
[2021-04-26] MEDS ORDERED: 0.9%NACL 1000ML 1,000 ML IV ONE ×2 (00:23→05:28)
[2021-04-26 00:48] LABS: BASOPHILS % (AUTO) 0.3 % (0.0-5.0); EOSINOPHILS % (AUTO) 0.9 % (0.0-8.0); HEMATOCRIT 39.3 % (42-54); LYMPHOCYTES % (AUTO) 30.7 % (21.0-51.0); MEAN CORPUSCULAR HEMOGLOBIN 31.9 pg (27.0-33.0); MEAN CORPUSCULAR HGB CONC 36.1 g/dL (32.0-36.0); MEAN CORPUSCULAR VOLUME 88.3 fL (79-99); PLATELET COUNT (AUTO) 175 K/uL (130-400); RED BLOOD CELL COUNT(AUTO) 4.45 MIL/uL (4.50-6.20); RED CELL DISTRIBUTION WIDTH 12.5 % (11.0-15.5)
[2021-04-26 00:54] LABS: CREATININE 1.1 mg/dL (0.5-1.5); POTASSIUM 4.3 mmol/L (3.5-5.1)
[2021-04-26 00:56] LABS: INR 0.98 (0.85-1.15); PROTHROMBIN TIME 10.7 SEC (9.6-11.6)
[2021-04-26 00:57] LABS: PARTIAL THROMBOPLASTIN TIME 25.3 SEC (26.3-35.5)
[2021-04-26 00:58] LABS: ALBUMIN 3.6 g/dL (3.5-5.0); BILIRUBIN,TOTAL 0.8 mg/dL (0.2-1.0); TOTAL PROTEIN, SERUM 6.7 g/dL (6.0-8.3)
[2021-04-26 04:16] LABS: AMPHET/METH SCREEN,URINE NEGATIVE (NEGATIVE); BARBITURATE SCREEN, URINE NEGATIVE (NEGATIVE); BENZODIAZEPINES SCREEN,URINE POSITIVE (NEGATIVE); CANNABINOID SCREEN,URINE NEGATIVE (NEGATIVE); COCAINE SCREEN,URINE NEGATIVE (NEGATIVE); OPIATE SCREEN,URINE NEGATIVE (NEGATIVE); PHENCYCLIDINE SCREEN,URINE NEGATIVE (NEGATIVE)
[2021-04-26] MEDS ORDERED: ONDANSETRON 4MG INJ IV PRN (05:00)
[2021-04-26] MEDS ORDERED: NITROGLYCERIN 0.4 MG SL TAB SL PRN (05:00)
[2021-04-26] MEDS ORDERED: 0.9%NACL 1000ML 1,000 ML IV SCH (05:00)
[2021-04-26] MEDS ORDERED: ACETAMINOPHEN 325 MG TAB PO PRN (05:00)
[2021-04-26] MEDS ORDERED: LACTULOSE 20 GM/30 ML UDCUP PO PRN (05:00)
[2021-04-26 07:10] LABS: BASOPHILS % (AUTO) 0.2 % (0.0-5.0); EOSINOPHILS % (AUTO) 1.1 % (0.0-8.0); HEMATOCRIT 35.6 % (42-54); LYMPHOCYTES % (AUTO) 31.4 % (21.0-51.0); MEAN CORPUSCULAR HEMOGLOBIN 31.2 pg (27.0-33.0); MEAN CORPUSCULAR HGB CONC 34.8 g/dL (32.0-36.0); MEAN CORPUSCULAR VOLUME 89.7 fL (79-99); MONOCYTES % (AUTO) 9.1 % (3.0-13.0); PLATELET COUNT (AUTO) 136 K/uL (130-400); RED BLOOD CELL COUNT(AUTO) 3.97 MIL/uL (4.50-6.20); RED CELL DISTRIBUTION WIDTH 12.6 % (11.0-15.5); WHITE BLOOD COUNT (AUTO) 5.4 K/uL (4.8-10.8)
[2021-04-26 07:18] LABS: HEMOGLOBIN A1C 8.2 % (4.0-6.0)
[2021-04-26 07:29] LABS: INR 0.98 (0.85-1.15); PROTHROMBIN TIME 10.7 SEC (9.6-11.6)
[2021-04-26] MEDS: INSULIN HUMULIN R 100 UNIT/ML 3ML SQ SCH (07:30)
[2021-04-26 07:31] LABS: PARTIAL THROMBOPLASTIN TIME 24.5 SEC (26.3-35.5)
[2021-04-26 07:43] LABS: ALBUMIN 3.2 g/dL (3.5-5.0); BILIRUBIN,TOTAL 0.5 mg/dL (0.2-1.0); MAGNESIUM 1.8 mg/dL (1.80-2.40); PHOSPHORUS 3.3 mg/dL (2.5-4.9); POTASSIUM 4.3 mmol/L (3.5-5.1); THYROID STIMULATING HORMONE 2.3 uIU/mL (0.36-3.74); TOTAL PROTEIN, SERUM 5.8 g/dL (6.0-8.3); TROPONIN I 0.05 ng/mL (0.00-0.06)
[2021-04-26] MEDS: ENOXAPARIN SODIUM 40 MG/0.4 ML SYRINGE SQ SCH (09:00)
[2021-04-26] MEDS: FAMOTIDINE 20MG TAB PO SCH (09:00)
[2021-04-26] MEDS ORDERED: METOPROLOL SUCCINATE 50 MG TAB.SR.24H PO SCH (09:00)
[2021-04-26] MEDS ORDERED: FLECAINIDE ACETATE 100 MG TABLET PO SCH (09:00)
[2021-04-26] MEDS: ASPIRIN 81MG CHEW TAB PO SCH (09:00)
[2021-04-26] MEDS ORDERED: FAMOTIDINE 20MG TAB ONE ×2 (09:19→20:11)
[2021-04-26] MEDS ORDERED: ASPIRIN 81MG CHEW TAB ONE (09:19)
[2021-04-26] MEDS ORDERED: ENOXAPARIN SODIUM 40 MG/0.4 ML SYRINGE SQ ONE (09:20)
[2021-04-26 12:47] LABS: CREATINE KINASE, TOTAL 329 U/L (21-232); MYOGLOBIN 35 ng/mL (10-92); TROPONIN I < 0.04 ng/mL (0.00-0.06)
[2021-04-26 13:06] LABS: APPEARANCE,URINE Clear (CLEAR); BILIRUBIN,URINE Negative (NEGATIVE); COLOR,URINE Yellow (YELLOW); GLUCOSE, URINE (UA) Negative (NEGATIVE); KETONES,URINE Negative (NEGATIVE); LEUKOCYTE ESTERASE ,URINE Negative (NEGATIVE); NITRATE,URINE Negative (NEGATIVE); OCCULT BLOOD,URINE Negative (NEGATIVE); PH,URINE 5.5 (5.0-8.0); PROTEIN,URINE Negative (NEGATIVE)
[2021-04-26 13:08] LABS: BACTERIA,URINE Rare /HPF (None Seen); RBC,URINE 0-1 /HPF (0-1); SQUAMOUS EPITHELIAL CELL,UR Rare /HPF (0-2); WBC,URINE 0-1 /HPF (0-1)
[2021-04-26] MEDS ORDERED: METOPROLOL TARTRATE 50 MG TAB PO SCH (13:15)
[2021-04-26] MEDS ORDERED: ACETAMINOPHEN 325 MG TAB ONE (20:11)
[2021-04-26 20:38] LABS: CREATINE KINASE, TOTAL 48 U/L (21-232); MYOGLOBIN 35 ng/mL (10-92); TROPONIN I < 0.04 ng/mL (0.00-0.06)
[2021-04-27 05:36] LABS: BASOPHILS % (AUTO) 0.2 % (0.0-5.0); HEMATOCRIT 34.6 % (42-54); LYMPHOCYTES % (AUTO) 29.1 % (21.0-51.0); MEAN CORPUSCULAR HEMOGLOBIN 31.7 pg (27.0-33.0); MEAN CORPUSCULAR HGB CONC 35.8 g/dL (32.0-36.0); MEAN CORPUSCULAR VOLUME 88.5 fL (79-99); MONOCYTES % (AUTO) 8.4 % (3.0-13.0); NEUTROPHILS % (AUTO) 60.9 % (40.0-77.0); PLATELET COUNT (AUTO) 128 K/uL (130-400); RED BLOOD CELL COUNT(AUTO) 3.91 MIL/uL (4.50-6.20); RED CELL DISTRIBUTION WIDTH 12.3 % (11.0-15.5)
[2021-04-27 05:49] LABS: MAGNESIUM 1.8 mg/dL (1.80-2.40); POTASSIUM 4.1 mmol/L (3.5-5.1)
[2021-04-27 05:51] LABS: PROTHROMBIN TIME 10.9 SEC (9.6-11.6)
[2021-04-27] MEDS ORDERED: ACETAMINOPHEN 325 MG TAB ONE (07:54)
[2021-04-27] MEDS ORDERED: FAMOTIDINE 20MG TAB ONE (08:36)
[2021-04-27] MEDS ORDERED: ASPIRIN 81MG CHEW TAB ONE (08:36)
[2021-04-27] MEDS ORDERED: METOPROLOL SUCCINATE 50 MG TAB.SR.24H PO ONE (08:37)
[2021-04-27] MEDS ORDERED: ENOXAPARIN SODIUM 40 MG/0.4 ML SYRINGE SQ ONE (08:37)
[2021-04-27] MEDS ORDERED: METOPROLOL SUCCINATE 50 MG TAB.SR.24H PO SCH (09:00)
[2021-04-27] MEDS: ENOXAPARIN SODIUM 40 MG/0.4 ML SYRINGE SQ SCH (09:00)
[2021-04-27] MEDS: ASPIRIN 81MG CHEW TAB PO SCH (09:00)
[2021-04-27] MEDS: FAMOTIDINE 20MG TAB PO SCH (09:00)
[2021-04-27 09:10] VITALS: BP 135/84
[2021-04-27] MEDS ORDERED: CHOL500050 PO (09:53)
[2021-04-27] MEDS: INSULIN HUMULIN R 100 UNIT/ML 3ML SQ SCH (12:09)
[2021-04-27 12:12] VITALS: BP 113/54
[2021-04-27] MEDS ORDERED: DRONEDARONE HYDROCHLORIDE 400 MG TABLET PO SCH (14:20)
[2021-04-27] MEDS ORDERED: DRON400T7 PO (14:23)
== END 2021-04-27 15:50 | disposition home or self-care (01) ==
LOC: EDH 23:35 → EDHIP 04-26 02:13 → 3DH 04-27 09:16
PROVIDERS: ADMIT Internal Medicine; ATTEND Internal Medicine
DX: I47.1 Supraventricular tachycardia (principal); E66.9 Obesity, unspecified; E11.9 Type 2 diabetes mellitus without complications; E78.00 Pure hypercholesterolemia, unspecified; I11.9 Hypertensive heart disease without heart failure; I42.1 Obstructive hypertrophic cardiomyopathy; I42.2 Other hypertrophic cardiomyopathy; I48.0 Paroxysmal atrial fibrillation; I25.10 Atherosclerotic heart disease of native coronary artery without angina pectoris; E78.5 Hyperlipidemia, unspecified; N52.9 Male erectile dysfunction, unspecified; Z86.16 Personal history of COVID-19; Z79.82 Long term (current) use of aspirin; Z79.84 Long term (current) use of oral hypoglycemic drugs; Z79.899 Other long term (current) drug therapy
CPT/HCPCS: 36415 ×2; 71045; 80048; 80053 ×2; 80061; 80305; 81001; 82550 ×4; 82948 ×2; 83036; 83735 ×2; 83874 ×3; 84100; 84443; 84484 ×4; 85025 ×3; 85610 ×3; 85730 ×2; 92960; 93005 ×2; 96372; 99285; G0378 ×35; J0153; J1650 ×2; J1815; J3490 ×2; J7030 ×2

== ENCOUNTER → 2021-07-28 | Outpatient (CLI) | payer BC ==
[~2021-07-28] MED LIST changes: +CHOL500050 PO; +DRON400T7 PO; -FLEC50TA3 PO; -GLIP2.5T17 PO; -PRED20TA3 PO; -ZINC100T2 PO
== END | disposition home or self-care (01) ==
LOC: RAH 12:32
PROVIDERS: ATTEND Internal Medicine Cardiovascular Disease
DX: I80.201 Phlebitis and thrombophlebitis of unspecified deep vessels of right lower extremity (principal); R60.9 Edema, unspecified; I83.90 Asymptomatic varicose veins of unspecified lower extremity
CPT/HCPCS: 93971

== ENCOUNTER 2021-08-30 10:13 | Emergency (ER) | payer BC ==
[~2021-08-30] VITALS: Ht 180.3 cm; Wt 108.9 kg
[2021-08-30] MEDS ORDERED: ADENOSINE 6MG VIAL IV ONE (10:19)
[2021-08-30] MEDS ORDERED: ASPIRIN 325MG TAB PO ONE (10:30)
[2021-08-30] MEDS ORDERED: 0.9%NACL 1000ML 1,000 ML IV ONE (10:30)
[2021-08-30 10:54] LABS: BASOPHILS % (AUTO) 0.6 % (0.0-5.0); EOSINOPHILS % (AUTO) 2.2 % (0.0-8.0); HEMATOCRIT 41.5 % (42-54); LYMPHOCYTES % (AUTO) 33.2 % (21.0-51.0); MEAN CORPUSCULAR HEMOGLOBIN 30.6 pg (27.0-33.0); MEAN CORPUSCULAR HGB CONC 36.4 g/dL (32.0-36.0); MEAN CORPUSCULAR VOLUME 84.2 fL (79-99); MONOCYTES % (AUTO) 6.6 % (3.0-13.0); NEUTROPHILS % (AUTO) 57.1 % (40.0-77.0); PLATELET COUNT (AUTO) 197 K/uL (130-400); RED BLOOD CELL COUNT(AUTO) 4.93 MIL/uL (4.50-6.20); RED CELL DISTRIBUTION WIDTH 11.9 % (11.0-15.5); WHITE BLOOD COUNT (AUTO) 7.1 K/uL (4.8-10.8)
[2021-08-30 11:08] LABS: CREATININE 1.2 mg/dL (0.5-1.5); POTASSIUM 3.9 mmol/L (3.5-5.1)
[2021-08-30 11:12] LABS: INR 1.03 (0.85-1.15); PROTHROMBIN TIME 11.2 SEC (9.6-11.6)
[2021-08-30 11:13] LABS: PARTIAL THROMBOPLASTIN TIME 25.1 SEC (26.3-35.5)
[2021-08-30 11:18] LABS: ALBUMIN 4.1 g/dL (3.5-5.0); BILIRUBIN,TOTAL 1.5 mg/dL (0.2-1.0); MAGNESIUM 1.7 mg/dL (1.80-2.40); TOTAL PROTEIN, SERUM 7.3 g/dL (6.0-8.3)
[2021-08-30 12:59] LABS: APPEARANCE,URINE Clear (CLEAR); BILIRUBIN,URINE Negative (NEGATIVE); COLOR,URINE Yellow (YELLOW); GLUCOSE, URINE (UA) >=1000 mg/dL (NEGATIVE); KETONES,URINE Trace mg/dL (NEGATIVE); LEUKOCYTE ESTERASE ,URINE Negative (NEGATIVE); NITRATE,URINE Negative (NEGATIVE); OCCULT BLOOD,URINE Negative (NEGATIVE); PROTEIN,URINE POS 1+ mg/dL (NEGATIVE)
[2021-08-30 13:00] LABS: BACTERIA,URINE Rare /HPF (None Seen); MUCUS,URINE Rare LPF (None Seen); RBC,URINE 0-1 /HPF (0-1); SQUAMOUS EPITHELIAL CELL,UR Rare /HPF (0-2); WBC,URINE 0-1 /HPF (0-1)
[2021-08-30 13:10] LABS: AMPHET/METH SCREEN,URINE NEGATIVE (NEGATIVE); BARBITURATE SCREEN, URINE NEGATIVE (NEGATIVE); BENZODIAZEPINES SCREEN,URINE NEGATIVE (NEGATIVE); CANNABINOID SCREEN,URINE NEGATIVE (NEGATIVE); COCAINE SCREEN,URINE NEGATIVE (NEGATIVE); OPIATE SCREEN,URINE NEGATIVE (NEGATIVE); PHENCYCLIDINE SCREEN,URINE NEGATIVE (NEGATIVE)
[2021-08-30 17:12] VITALS: BP 119/85
== END 2021-08-30 18:18 | disposition home or self-care (01) ==
LOC: EDH 10:13
DX: I47.1 Supraventricular tachycardia (principal); E11.9 Type 2 diabetes mellitus without complications; E78.00 Pure hypercholesterolemia, unspecified; I10 Essential (primary) hypertension; Z79.82 Long term (current) use of aspirin; Z79.84 Long term (current) use of oral hypoglycemic drugs; Z79.899 Other long term (current) drug therapy
CPT/HCPCS: 36415; 71045; 80053; 80305; 81001; 82550 ×2; 83735; 83874 ×2; 83880; 84484 ×2; 85025; 85610; 85730; 93005 ×2; 96361; 96374; 99291; J0153; J7030; 96372

== ENCOUNTER 2022-02-28 07:17 | Observation (INO) | payer BC ==
[~2022-02-28] VITALS: Ht 180.3 cm; Wt 103.0 kg
[2022-02-28] MEDS ORDERED: ADENOSINE 6MG VIAL IV ONE ×2 (07:26→07:32)
[2022-02-28] MEDS ORDERED: 0.9% NACL 500ML IV.SOLN 500 ML IV ONE (07:26)
[2022-02-28] MEDS ORDERED: METOPROLOL TARTRATE 1 MG/ML 5ML VIAL IV ONE (07:35)
[2022-02-28 07:56] LABS: BASOPHILS % (AUTO) 0.5 % (0.0-5.0); EOSINOPHILS % (AUTO) 1.5 % (0.0-8.0); HEMATOCRIT 47.1 % (42-54); LYMPHOCYTES % (AUTO) 46.9 % (21.0-51.0); MEAN CORPUSCULAR HEMOGLOBIN 29.8 pg (27.0-33.0); MEAN CORPUSCULAR HGB CONC 34.2 g/dL (32.0-36.0); MEAN CORPUSCULAR VOLUME 87.1 fL (79-99); MONOCYTES % (AUTO) 5.8 % (3.0-13.0); NEUTROPHILS % (AUTO) 45.1 % (40.0-77.0); PLATELET COUNT (AUTO) 232 K/uL (130-400); RED BLOOD CELL COUNT(AUTO) 5.41 MIL/uL (4.50-6.20); RED CELL DISTRIBUTION WIDTH 13.2 % (11.0-15.5); WHITE BLOOD COUNT (AUTO) 8.2 K/uL (4.8-10.8)
[2022-02-28 08:43] LABS: CREATININE 1.1 mg/dL (0.5-1.5); POTASSIUM 3.8 mmol/L (3.5-5.1)
[2022-02-28 08:47] LABS: ALBUMIN 3.6 g/dL (3.5-5.0); BILIRUBIN,TOTAL 1.6 mg/dL (0.2-1.0); TOTAL PROTEIN, SERUM 6.4 g/dL (6.0-8.3)
[2022-02-28] MEDS ORDERED: METOPROLOL SUCCINATE 50 MG TAB.SR.24H PO ONE (13:00)
[2022-02-28] MEDS ORDERED: KCL 20 MEQ ERTAB PO ONE (13:00)
[2022-02-28] MEDS ORDERED: ASPIRIN 81 MG EC TAB PO ONE (13:00)
[2022-02-28] MEDS ORDERED: PANTOPRAZOLE 40 MG TAB DR PO SCH (13:00)
[2022-02-28] MEDS: ASPIRIN 81 MG EC TAB PO SCH (13:26)
[2022-02-28] MEDS: METOPROLOL SUCCINATE 50 MG TAB.SR.24H PO SCH (13:26)
[2022-02-28] MEDS: PANTOPRAZOLE 40 MG TAB DR PO SCH (13:26)
[2022-02-28 13:27] LABS: HEMOGLOBIN A1C 7.9 % (4.0-6.0)
[2022-02-28] MEDS ORDERED: SOTA80TA PO ×2 (13:29)
[2022-02-28] MEDS ORDERED: ATOR-2 PO (13:29)
[2022-02-28] MEDS: INSULIN HUMULIN R 100 UNIT/ML 3ML SQ SCH ×2 (16:20→19:43)
[2022-02-28] MEDS ORDERED: ACETAMINOPHEN 500 MG TABLET PO PRN (18:00)
[2022-02-28] MEDS ORDERED: ACETAMINOPHEN 500 MG TABLET ONE (18:04)
[2022-02-28] MEDS ORDERED: MAGNESIUM OXIDE 400 MG TABLET PO SCH (18:30)
[2022-02-28] MEDS: SOTALOL HCL 80 MG TABLET PO SCH ×2 (19:43→23:38)
[2022-02-28] MEDS ORDERED: ATORVASTATIN 40 MG TABLET PO SCH (21:00)
[2022-02-28 21:30] VITALS: BP 134/85
[2022-03-01 00:12] VITALS: BP 115/77
[2022-03-01 03:00] VITALS: BP 124/87
[2022-03-01] MEDS: INSULIN HUMULIN R 100 UNIT/ML 3ML SQ SCH ×2 (06:46→11:04)
[2022-03-01 07:14] LABS: BASOPHILS % (AUTO) 0.4 % (0.0-5.0); EOSINOPHILS % (AUTO) 2.3 % (0.0-8.0); HEMATOCRIT 40.7 % (42-54); LYMPHOCYTES % (AUTO) 32.3 % (21.0-51.0); MEAN CORPUSCULAR HEMOGLOBIN 30.6 pg (27.0-33.0); MEAN CORPUSCULAR HGB CONC 35.1 g/dL (32.0-36.0); MEAN CORPUSCULAR VOLUME 87.2 fL (79-99); NEUTROPHILS % (AUTO) 58.8 % (40.0-77.0); PLATELET COUNT (AUTO) 159 K/uL (130-400); RED BLOOD CELL COUNT(AUTO) 4.67 MIL/uL (4.50-6.20); RED CELL DISTRIBUTION WIDTH 12.9 % (11.0-15.5); WHITE BLOOD COUNT (AUTO) 5.3 K/uL (4.8-10.8)
[2022-03-01 07:35] LABS: ALBUMIN 3.8 g/dL (3.5-5.0); BILIRUBIN,TOTAL 1.7 mg/dL (0.2-1.0); CREATININE 0.9 mg/dL (0.5-1.5); MAGNESIUM 1.9 mg/dL (1.80-2.40); POTASSIUM 4.2 mmol/L (3.5-5.1); TOTAL PROTEIN, SERUM 6.9 g/dL (6.0-8.3)
[2022-03-01 07:45] VITALS: BP 130/85
[2022-03-01] MEDS: SOTALOL HCL 80 MG TABLET PO SCH (08:31)
[2022-03-01] MEDS: ASPIRIN 81 MG EC TAB PO SCH (08:32)
[2022-03-01] MEDS: METOPROLOL SUCCINATE 50 MG TAB.SR.24H PO SCH (08:32)
[2022-03-01] MEDS: PANTOPRAZOLE 40 MG TAB DR PO SCH (08:35)
[2022-03-01] MEDS ORDERED: MAGNESIUM OXIDE 400 MG TABLET PO SCH (09:00)
[2022-03-01 11:10] VITALS: BP 121/81
== END 2022-03-01 13:34 | disposition home or self-care (01) ==
LOC: EDH 07:17 → EDHIP 14:52 → 2DH 21:39
PROVIDERS: ADMIT Internal Medicine; ATTEND Internal Medicine
DX: I47.1 Supraventricular tachycardia (principal); Z20.822 Contact with and (suspected) exposure to COVID-19; I48.0 Paroxysmal atrial fibrillation; I25.10 Atherosclerotic heart disease of native coronary artery without angina pectoris; I95.9 Hypotension, unspecified; E78.5 Hyperlipidemia, unspecified; E11.9 Type 2 diabetes mellitus without complications; E66.9 Obesity, unspecified; I10 Essential (primary) hypertension; E78.00 Pure hypercholesterolemia, unspecified; E83.42 Hypomagnesemia; Z79.82 Long term (current) use of aspirin; Z79.899 Other long term (current) drug therapy; Z86.16 Personal history of COVID-19; Z86.718 Personal history of other venous thrombosis and embolism; Z87.01 Personal history of pneumonia (recurrent)
CPT/HCPCS: 36415 ×2; 71045; 80053 ×2; 82948 ×4; 83036; 83735 ×2; 84443; 84484; 85025 ×2; 87635; 87804 ×2; 93005 ×3; 96361; 96372 ×2; 96374; 96375; 99291; C9803; G0378 ×23; J0153 ×2; J1815 ×2; J3490; J7040

== ENCOUNTER 2022-03-17 23:54 | Emergency (ER) | payer BC ==
[~2022-03-17] VITALS: Ht 180.3 cm; Wt 102.1 kg
[~2022-03-17 23:54] MED LIST changes: +ATOR-2 PO; -ATOR40TA69 PO; -DRON400T7 PO; -LISI20TA24 PO; +SOTA80TA PO
[2022-03-18] MEDS ORDERED: ADENOSINE 6MG VIAL IV ONE (00:10)
[2022-03-18] MEDS ORDERED: DILTIAZEM 125 MG/25 ML INJ IV ONE (00:16)
[2022-03-18] MEDS ORDERED: DILTIAZEM 25MG INJ IVP PRN (00:30)
[2022-03-18 00:35] LABS: BASOPHILS % (AUTO) 0.4 % (0.0-5.0); HEMATOCRIT 43.3 % (42-54); LYMPHOCYTES % (AUTO) 39.5 % (21.0-51.0); MEAN CORPUSCULAR HEMOGLOBIN 30.3 pg (27.0-33.0); MEAN CORPUSCULAR HGB CONC 35.1 g/dL (32.0-36.0); MEAN CORPUSCULAR VOLUME 86.3 fL (79-99); MONOCYTES % (AUTO) 6.4 % (3.0-13.0); NEUTROPHILS % (AUTO) 51.4 % (40.0-77.0); PLATELET COUNT (AUTO) 195 K/uL (130-400); RED BLOOD CELL COUNT(AUTO) 5.02 MIL/uL (4.50-6.20); RED CELL DISTRIBUTION WIDTH 12.4 % (11.0-15.5); WHITE BLOOD COUNT (AUTO) 7.6 K/uL (4.8-10.8)
[2022-03-18 00:38] LABS: POTASSIUM 4.1 mmol/L (3.5-5.1)
[2022-03-18 00:43] LABS: BILIRUBIN,TOTAL 1.1 mg/dL (0.2-1.0); TOTAL PROTEIN, SERUM 7.2 g/dL (6.0-8.3)
[2022-03-18] MEDS ORDERED: METOPROLOL TARTRATE 50 MG TAB ONE (01:45)
[2022-03-18] MEDS ORDERED: METOPROLOL TARTRATE 1 MG/ML 5ML VIAL IV ONE ×2 (02:25→02:30)
[2022-03-18 02:44] VITALS: BP 101/70
== END 2022-03-18 02:38 | disposition home or self-care (01) ==
LOC: EDH 23:54
DX: I47.1 Supraventricular tachycardia (principal); E11.9 Type 2 diabetes mellitus without complications; E78.00 Pure hypercholesterolemia, unspecified; I10 Essential (primary) hypertension; Z79.84 Long term (current) use of oral hypoglycemic drugs; Z79.899 Other long term (current) drug therapy; Z79.82 Long term (current) use of aspirin; Z98.890 Other specified postprocedural states
CPT/HCPCS: 36415; 71045; 80053; 84484; 85025; 93005 ×2; 96374; 96375; 96376; 99284; J0153; J3490 ×2

== ENCOUNTER 2022-08-27 06:53 | Observation (INO) | payer BC ==
[2022-08-23 13:10] LABS: BASOPHILS % (AUTO) 0.5 % (0.0-5.0); EOSINOPHILS % (AUTO) 2.5 % (0.0-8.0); HEMATOCRIT 41.4 % (42-54); MEAN CORPUSCULAR HEMOGLOBIN 31.4 pg (27.0-33.0); MEAN CORPUSCULAR HGB CONC 36.7 g/dL (32.0-36.0); MEAN CORPUSCULAR VOLUME 85.5 fL (79-99); MONOCYTES % (AUTO) 6.3 % (3.0-13.0); NEUTROPHILS % (AUTO) 56.4 % (40.0-77.0); PLATELET COUNT (AUTO) 184 K/uL (130-400); RED BLOOD CELL COUNT(AUTO) 4.84 MIL/uL (4.50-6.20); RED CELL DISTRIBUTION WIDTH 12.2 % (11.0-15.5); WHITE BLOOD COUNT (AUTO) 6.4 K/uL (4.8-10.8)
[2022-08-23 13:16] LABS: POTASSIUM 4.1 mmol/L (3.5-5.1)
[2022-08-23 13:20] LABS: PROTHROMBIN TIME 10.9 SEC (9.6-11.6)
[2022-08-23 13:21] LABS: PARTIAL THROMBOPLASTIN TIME 27.9 SEC (26.3-35.5)
[2022-08-23 13:24] LABS: APPEARANCE,URINE CLEAR (CLEAR); BILIRUBIN,URINE NEGATIVE (NEGATIVE); COLOR,URINE LIGHT-YELLOW (YELLOW); GLUCOSE, URINE (UA) >=1000 mg/dL (NEGATIVE); KETONES,URINE NEGATIVE (NEGATIVE); LEUKOCYTE ESTERASE ,URINE NEGATIVE Leu/uL (NEGATIVE); NITRATE,URINE NEGATIVE (NEGATIVE); OCCULT BLOOD,URINE NEGATIVE (NEGATIVE); PH,URINE 5.5 (5.0-8.0); PROTEIN,URINE 10 mg/dL (NEGATIVE); UROBILINOGEN,URINE 0.2 mg/dL (0.2-1.0)
[2022-08-23 13:28] LABS: MUCUS,URINE RARE LPF (None Seen); RBC,URINE 0-1 /HPF (0-1); WBC,URINE 0-1 /HPF (0-1)
[2022-08-23 13:33] LABS: B-TYPE NATRIURETIC PEPTIDE 45 pg/mL (0-100)
[2022-08-24 10:18] VITALS: BP 150/88
[~2022-08-27] VITALS: Ht 185.4 cm; Wt 103.0 kg
[2022-08-27] VITALS (11 sets, daily range): BP systolic 134–157; BP diastolic 62–93
[~2022-08-27 06:53] MED LIST changes: +AEC81 PO; +ASCO100031 PO; -ASPI-556 PO; +CHOL100046 PO; -CHOL500050 PO; +METO50TA18 PO; -METO50TA9 PO; +RIVA20TA PO; +SEMA3TAB4 PO; +SOTA120T PO; -SOTA80TA PO
[2022-08-27] MEDS ORDERED: 0.9%NACL 1000ML 1,000 ML IV SCH ×2 (08:00→13:30)
[2022-08-27] MEDS ORDERED: LIDOCAINE HCL-MPF 2% 10ML AMP IJ ONE (09:54)
[2022-08-27] MEDS ORDERED: NITROGLYCERIN 50MG VIAL ONE (09:54)
[2022-08-27] MEDS ORDERED: IOHEXOL-350 50ML VIAL IV ONE (09:55)
[2022-08-27] MEDS ORDERED: IOHEXOL 350 MG/ML 100ML INFUS..BTL IV ONE (09:55)
[2022-08-27] MEDS ORDERED: FENTANYL CITRATE PF 50 MCG/1 ML 2ML VIAL ONE ×2 (09:55→12:42)
[2022-08-27] MEDS ORDERED: MIDAZOLAM HCL 5 MG/ML 2ML VIAL IV ONE (09:56)
[2022-08-27] MEDS ORDERED: BIVALIRUDIN 250 MG/VIAL IV ONE ×2 (11:23→12:31)
[2022-08-27] MEDS ORDERED: HEPARIN 10,000 UNIT/10ML (1,000 UNIT/ML) VIAL ONE (11:29)
[2022-08-27] MEDS ORDERED: PRASUGREL HCL 10 MG TABLET ONE (11:40)
[2022-08-27] MEDS ORDERED: ASPIRIN 325MG EC TAB PO ONE (11:40)
[2022-08-27] MEDS ORDERED: ADENOSINE 6MG VIAL IV ONE (12:13)
[2022-08-27] MEDS ORDERED: ONDANSETRON 4MG INJ IVP PRN (13:30)
[2022-08-27] MEDS ORDERED: DEXTROSE 50%-WATER 50 ML DISP.SYRIN IV PRN (13:30)
[2022-08-27] MEDS ORDERED: GLUCAGON 1MG KIT 1 MG ML IM PRN (13:30)
[2022-08-27] MEDS: INSULIN HUMULIN R 100 UNIT/ML 3ML SQ SCH ×2 (17:59→20:00)
[2022-08-27] MEDS: ***HM*** (Cholecalciferol (Vitamin D3) (Vitamin D3) 25 MCG) PO SCH (20:29)
[2022-08-27] MEDS: SOTALOL HCL 80 MG TABLET PO SCH (20:29)
[2022-08-27] MEDS: METOPROLOL TARTRATE 50 MG TAB PO SCH (20:29)
[2022-08-27] MEDS ORDERED: ATORVASTATIN 40 MG TABLET PO SCH (21:00)
[2022-08-28] VITALS: BP 158/86
[2022-08-28] MEDS ORDERED: NITROGLYCERIN 0.4 MG SL TAB SL PRN (01:30)
[2022-08-28] MEDS ORDERED: ACETAMINOPHEN 325 MG TAB PO PRN ×2 (01:30)
[2022-08-28 04:00] VITALS: BP 142/77
[2022-08-28 04:47] LABS: HEMATOCRIT 39.3 % (42-54); MEAN CORPUSCULAR HEMOGLOBIN 31.2 pg (27.0-33.0); MEAN CORPUSCULAR HGB CONC 36.4 g/dL (32.0-36.0); MEAN CORPUSCULAR VOLUME 85.6 fL (79-99); RED BLOOD CELL COUNT(AUTO) 4.59 MIL/uL (4.50-6.20); RED CELL DISTRIBUTION WIDTH 11.9 % (11.0-15.5)
[2022-08-28 05:00] LABS: MAGNESIUM 1.8 mg/dL (1.80-2.40)
[2022-08-28] MEDS: INSULIN HUMULIN R 100 UNIT/ML 3ML SQ SCH ×2 (05:37→11:56)
[2022-08-28] MEDS ORDERED: SEMAGLUTIDE 3 MG PO SCH (07:30)
[2022-08-28 08:04] VITALS: BP 146/91
[2022-08-28] MEDS ORDERED: PRASUGREL HCL 10 MG TABLET PO SCH (09:00)
[2022-08-28] MEDS ORDERED: ENOXAPARIN SODIUM 30 MG/0.3 ML SQ SCH (09:00)
[2022-08-28] MEDS ORDERED: ASCORBIC ACID 500 MG TAB PO SCH (09:00)
[2022-08-28] MEDS ORDERED: ASPIRIN 81 MG EC TAB PO SCH (09:00)
[2022-08-28] MEDS: ***HM*** (Cholecalciferol (Vitamin D3) (Vitamin D3) 25 MCG) PO SCH (09:00)
[2022-08-28] MEDS ORDERED: FAMOTIDINE 20MG TAB PO SCH (09:00)
[2022-08-28] MEDS ORDERED: PRAS10TA6 PO (10:05)
[2022-08-28] MEDS: SOTALOL HCL 80 MG TABLET PO SCH (10:19)
[2022-08-28] MEDS: METOPROLOL TARTRATE 50 MG TAB PO SCH (10:20)
[2022-08-28 12:23] VITALS: BP 131/98
[2022-08-28 17:27] VITALS: BP 140/85
== END 2022-08-28 17:45 | disposition home or self-care (01) ==
LOC: DAH 06:53 → DAHIP 06:54 → DAH 06:54 → 2AH 19:10
PROVIDERS: ADMIT Internal Medicine; ATTEND Internal Medicine
DX: I25.119 Atherosclerotic heart disease of native coronary artery with unspecified angina pectoris (principal); I48.0 Paroxysmal atrial fibrillation; I47.1 Supraventricular tachycardia; I42.1 Obstructive hypertrophic cardiomyopathy; Z79.01 Long term (current) use of anticoagulants; Z79.82 Long term (current) use of aspirin; Z79.84 Long term (current) use of oral hypoglycemic drugs; Z79.899 Other long term (current) drug therapy; Z98.890 Other specified postprocedural states
CPT/HCPCS: 80048 ×2; 83880; 85025; 85610; 85730; 81001; 36415 ×2; 71045; 93005; 93458; 93571; 96372 ×2; 96360; 96361; 82948 ×7; 83735; 80061; 85027; C1887; C1894 ×5; C1760 ×2; C1769; C1874 ×4; Q9965; G0378 ×29; J0153; J3010 ×2; J7030 ×2; J1644 ×2; J3490 ×2; J0583 ×2; J2250; Q9967 ×2; J1815 ×2; A4215; A4223 ×3; A4222; A4221; A4663; A4216; A4606; C9600; J1650; 99156; 99157

== ENCOUNTER 2022-12-27 09:39 | Emergency (ER) | payer BC ==
[~2022-12-27] VITALS: Ht 177.8 cm; Wt 99.8 kg
[~2022-12-27 09:39] MED LIST changes: +PRAS10TA6 PO; -RIVA20TA PO
[2022-12-27] MEDS ORDERED: ADENOSINE 6MG VIAL IV ONE (09:43)
[2022-12-27 09:54] LABS: BASOPHILS % (AUTO) 0.5 % (0.0-5.0); EOSINOPHILS % (AUTO) 1.6 % (0.0-8.0); HEMATOCRIT 50.2 % (42-54); LYMPHOCYTES % (AUTO) 36.9 % (21.0-51.0); MEAN CORPUSCULAR HEMOGLOBIN 30.6 pg (27.0-33.0); MEAN CORPUSCULAR HGB CONC 35.1 g/dL (32.0-36.0); MEAN CORPUSCULAR VOLUME 87.2 fL (79-99); MONOCYTES % (AUTO) 6.8 % (3.0-13.0); PLATELET COUNT (AUTO) 257 K/uL (130-400); RED BLOOD CELL COUNT(AUTO) 5.76 MIL/uL (4.50-6.20); RED CELL DISTRIBUTION WIDTH 12.6 % (11.0-15.5); WHITE BLOOD COUNT (AUTO) 8.1 K/uL (4.8-10.8)
[2022-12-27] MEDS ORDERED: ASPIRIN 81MG CHEW TAB PO ONE (10:00)
[2022-12-27 10:01] LABS: CREATININE 1.1 mg/dL (0.5-1.5); POTASSIUM 4.9 mmol/L (3.5-5.1)
[2022-12-27 10:06] LABS: ALBUMIN 4.9 g/dL (3.5-5.0); TOTAL PROTEIN, SERUM 8.1 g/dL (6.0-8.3)
[2022-12-27 10:45] VITALS: BP 118/84
== END 2022-12-27 10:50 | disposition home or self-care (01) ==
LOC: EDH 09:39
DX: I47.1 Supraventricular tachycardia (principal); E11.9 Type 2 diabetes mellitus without complications; I10 Essential (primary) hypertension; Z79.82 Long term (current) use of aspirin; Z79.84 Long term (current) use of oral hypoglycemic drugs
CPT/HCPCS: 99284; 96374; 71045; 84484; 80053; 85025; 36415; 93005; J0153

== ENCOUNTER 2023-08-14 11:09 | Inpatient (IN) | payer BC ==
[~2023-08-14] VITALS: Ht 177.8 cm; Wt 97.5 kg
[~2023-08-14 11:09] MED LIST changes: +APIX5TAB PO; -METF-444 PO; +METF-446 PO; -PRAS10TA6 PO
[2023-08-14] MEDS ORDERED: ADENOSINE 6MG VIAL IV ONE (11:27)
[2023-08-14 12:02] LABS: HEMATOCRIT 45.7 % (42-54); MEAN CORPUSCULAR HEMOGLOBIN 30.9 pg (27.0-33.0); MEAN CORPUSCULAR HGB CONC 36.1 g/dL (32.0-36.0); MEAN CORPUSCULAR VOLUME 85.6 fL (79-99); PLATELET COUNT (AUTO) 275 K/uL (130-400); RED BLOOD CELL COUNT(AUTO) 5.34 MIL/uL (4.50-6.20); RED CELL DISTRIBUTION WIDTH 12.6 % (11.0-15.5)
[2023-08-14 12:15] LABS: CREATININE 1.2 mg/dL (0.5-1.5); POTASSIUM 4.3 mmol/L (3.5-5.1)
[2023-08-14 12:19] LABS: ALBUMIN 4.6 g/dL (3.5-5.0); TOTAL PROTEIN, SERUM 8.1 g/dL (6.0-8.3)
[2023-08-14 12:28] LABS: INR 0.94 (0.85-1.15); PROTHROMBIN TIME 10.9 SEC (9.6-11.6)
[2023-08-14 12:29] LABS: PARTIAL THROMBOPLASTIN TIME 28.2 SEC (26.3-35.5)
[2023-08-14 13:07] LABS: EOSINOPHILS % (MANUAL) 1 % (1-6); LYMPHOCYTES % (MANUAL) 30 % (22-44); MONOCYTES % (MANUAL) 1 % (2-9); SEGMENTED NEUTROPHILS % 68 % (40-70); TOTAL CELLS COUNTED 100
[2023-08-14 13:08] LABS: MAN.DIFF COMMENT-IMPRESSION MANUAL DIFFERENTIAL; PLATELET MORPHOLOGY COMMENT ADEQUATE
[2023-08-14] MEDS ORDERED: NITROGLYCERIN 1GM OINT 1 INCH/1GM TD SCH (16:00)
[2023-08-14] MEDS ORDERED: MORPHINE 4 MG SYG IV PRN (16:00)
[2023-08-14] MEDS ORDERED: ACETAMINOPHEN 325 MG TAB PO PRN ×2 (16:00)
[2023-08-14] MEDS ORDERED: ONDANSETRON 4MG INJ IV PRN (16:00)
[2023-08-14] MEDS ORDERED: MORPHINE 2 MG SYG IV PRN (16:00)
[2023-08-14 16:50] VITALS: BP 124/76; PULSE 64; RESP 18; O2SAT 99
[2023-08-14] MEDS ORDERED: VERA120T20 PO (16:53)
[2023-08-14] MEDS ORDERED: FAMOTIDINE 20MG VIAL IV SCH (21:00)
[2023-08-14] MEDS ORDERED: METOPROLOL TARTRATE 50 MG TAB PO SCH (21:00)
[2023-08-14] MEDS ORDERED: HEPARIN 5,000 UNIT VIAL SQ SCH (21:00)
[2023-08-15] MEDS ORDERED: ASCORBIC ACID 500 MG TAB PO SCH (09:00)
== END 2023-08-14 17:28 | disposition home or self-care (01) | DRG 311 ==
LOC: EDH 11:09 → EDHIP 15:52
PROVIDERS: ADMIT Hospitalist; ATTEND Hospitalist
DX: I24.9 Acute ischemic heart disease, unspecified (principal); I47.1 Supraventricular tachycardia; E11.65 Type 2 diabetes mellitus with hyperglycemia; E78.00 Pure hypercholesterolemia, unspecified; I10 Essential (primary) hypertension; I48.0 Paroxysmal atrial fibrillation; Z79.01 Long term (current) use of anticoagulants; Z95.5 Presence of coronary angioplasty implant and graft
CPT/HCPCS: 36415; 71045; 80053; 84484; 85025; 85610; 85651; 85730; 93005; G0378; J0153

== ENCOUNTER 2024-05-11 19:16 | Inpatient (IN) | payer BC, MEDICARE ==
[~2024-05-11] VITALS: Ht 180.3 cm; Wt 93.6 kg
[~2024-05-11 19:16] MED LIST changes: -ASCO100031 PO; +ASCO500C18 PO; -SEMA3TAB4 PO; +SEMA7TAB2 PO; -SOTA120T PO
[2024-05-11] MEDS: ASPIRIN 325MG TAB PO ONE (19:54)
[2024-05-11] MEDS: METOPROLOL TARTRATE 1 MG/ML 5ML VIAL IV ONE (19:55)
[2024-05-11 20:14] LABS: BASOPHILS # (AUTO) 0.04 K/uL (0.00-0.20); BASOPHILS % (AUTO) 0.4 % (0.0-5.0); EOSINOPHILS # (AUTO) 0.16 K/uL (0.00-0.70); EOSINOPHILS % (AUTO) 1.7 % (0.0-8.0); HEMATOCRIT 41.5 % (42-54); IMMATURE GRANULOCYTE ABSOLUTE 0.02 K/uL (0-1); LYMPHOCYTES # (AUTO) 2.8 K/uL (1.0-4.8); LYMPHOCYTES % (AUTO) 29.9 % (21.0-51.0); MEAN CORPUSCULAR HEMOGLOBIN 30.7 pg (27.0-33.0); MEAN CORPUSCULAR HGB CONC 36.9 g/dL (32.0-36.0); MEAN CORPUSCULAR VOLUME 83.3 fL (79-99); MONOCYTES # (AUTO) 0.9 K/uL (0.1-1.0); MONOCYTES % (AUTO) 9.9 % (3.0-13.0); NEUTROPHILS # (AUTO) 5.4 K/uL (1.8-7.7); NEUTROPHILS % (AUTO) 57.9 % (40.0-77.0); PLATELET COUNT (AUTO) 217 K/uL (130-400); RED BLOOD CELL COUNT(AUTO) 4.98 MIL/uL (4.50-6.20); RED CELL DISTRIBUTION WIDTH 12.2 % (11.0-15.5); WHITE BLOOD COUNT (AUTO) 9.3 K/uL (4.8-10.8)
[2024-05-11 20:20] LABS: INR 0.96 (0.85-1.15); PROTHROMBIN TIME 11.4 SEC (9.6-11.6)
[2024-05-11 20:22] LABS: PARTIAL THROMBOPLASTIN TIME 28.8 SEC (26.3-35.5)
[2024-05-11 20:26] LABS: CREATININE 1.2 mg/dL (0.5-1.3)
[2024-05-11] MEDS: 0.9% NACL 500ML IV.SOLN 500 ML IV ONE (20:30)
[2024-05-11 20:31] LABS: ALBUMIN 3.6 g/dL (3.5-5.0); BILIRUBIN,TOTAL 1.6 mg/dL (0.2-1.0); MAGNESIUM 1.7 mg/dL (1.80-2.40); TOTAL PROTEIN, SERUM 7.1 g/dL (6.0-8.3)
[2024-05-11] MEDS: DILTIAZEM 125MG+100 ML NS 125 ML IV ONE (20:50)
[2024-05-11] MEDS: DILTIAZEM 125 MG/25 ML INJ 125 MG in 0.9%NACL 100ML 100 ML IV SCH (20:52)
[2024-05-11 21:04] LABS: B-TYPE NATRIURETIC PEPTIDE 93 pg/mL (0-100)
[2024-05-11] MEDS: CEFTRIAXONE 1G VIAL IVPB ONE (21:43)
[2024-05-11] MEDS: AZITHROMYCIN 500MG+NS 250ML 250 ML IVPB SCH (21:43)
[2024-05-11 23:13] LABS: COVID19 (SARS ANTIGEN RAPID) PRESUMPTIVE NEGATIVE (NEGATIVE); INFLUENZA TYPE A Negative For Type A (NEGATIVE); INFLUENZA TYPE B Negative For Type B (NEGATIVE)
[2024-05-11 23:22] LABS: AMPHET/METH SCREEN,URINE NEGATIVE (NEGATIVE); BARBITURATE SCREEN, URINE NEGATIVE (NEGATIVE); BENZODIAZEPINES SCREEN,URINE NEGATIVE (NEGATIVE); CANNABINOID SCREEN,URINE NEGATIVE (NEGATIVE); COCAINE SCREEN,URINE NEGATIVE (NEGATIVE); OPIATE SCREEN,URINE NEGATIVE (NEGATIVE); PHENCYCLIDINE SCREEN,URINE NEGATIVE (NEGATIVE)
[2024-05-11 23:32] LABS: ADD UA MICROSCOPIC YES; APPEARANCE,URINE CLEAR (CLEAR); BACTERIA,URINE RARE /HPF (None Seen); BILIRUBIN,URINE NEGATIVE (NEGATIVE); COLOR,URINE LIGHT-YELLOW (YELLOW); GLUCOSE, URINE (UA) NEGATIVE (NEGATIVE); KETONES,URINE 10 mg/dL (NEGATIVE); LEUKOCYTE ESTERASE ,URINE NEGATIVE Leu/uL (NEGATIVE); MUCUS,URINE RARE LPF (None Seen); NITRATE,URINE NEGATIVE (NEGATIVE); OCCULT BLOOD,URINE NEGATIVE (NEGATIVE); PH,URINE 5.5 (5.0-8.0); PROTEIN,URINE 10 mg/dL (NEGATIVE); RBC,URINE 0-1 /HPF (0-1); UROBILINOGEN,URINE 0.2 mg/dL (0.2-1.0); WBC,URINE 0-1 /HPF (0-1)
[2024-05-12] VITALS (8 sets, daily range): BP systolic 121–139; BP diastolic 69–82; PULSE 67–78; RESP 18–20; O2SAT 96–98
[2024-05-12] MEDS ORDERED: GUAIFENESIN-DM 200/20 MG 10 ML PO PRN
[2024-05-12] MEDS ORDERED: POTASSIUM CHLORIDE 10% ELIXIR 20 MEQ/15 ML UDCUP PO PRN
[2024-05-12] MEDS ORDERED: ONDANSETRON 4MG INJ IV PRN
[2024-05-12] MEDS ORDERED: NITROGLYCERIN 0.4 MG SL TAB SL PRN
[2024-05-12] MEDS: CEFTRIAXONE 1G VIAL 1 GM in 0.9%NACL 50ML 50 ML IV SCH
[2024-05-12] MEDS ORDERED: POTASSIUM CHLORIDE 20MEQ/100ML 100 ML IV PRN
[2024-05-12] MEDS ORDERED: DEXTROSE 50%-WATER 50 ML DISP.SYRIN IV PRN
[2024-05-12] MEDS ORDERED: GLUCAGON 1MG KIT 1 MG ML IM PRN
[2024-05-12] MEDS: AZITHROMYCIN 500MG+NS 250ML 250 ML IV SCH
[2024-05-12] MEDS ORDERED: HYDRALAZINE 20MG/ML VIAL IV PRN
[2024-05-12] MEDS ORDERED: METF-526 PO (03:10)
[2024-05-12] MEDS ORDERED: APIX5TAB PO (03:11)
[2024-05-12] MEDS ORDERED: VERA120C3 PO (03:15)
[2024-05-12] MEDS ORDERED: SOTA80TA PO (03:17)
[2024-05-12] MEDS ORDERED: ATOR40TA71 PO (03:18)
[2024-05-12 03:52] LABS: BASOPHILS # (AUTO) 0.03 K/uL (0.00-0.20); BASOPHILS % (AUTO) 0.4 % (0.0-5.0); EOSINOPHILS # (AUTO) 0.16 K/uL (0.00-0.70); EOSINOPHILS % (AUTO) 2.2 % (0.0-8.0); HEMATOCRIT 38.4 % (42-54); IMMATURE GRANULOCYTE ABSOLUTE 0.02 K/uL (0-1); LYMPHOCYTES # (AUTO) 2.8 K/uL (1.0-4.8); MEAN CORPUSCULAR HEMOGLOBIN 31.2 pg (27.0-33.0); MEAN CORPUSCULAR HGB CONC 35.9 g/dL (32.0-36.0); MEAN CORPUSCULAR VOLUME 86.7 fL (79-99); MONOCYTES # (AUTO) 0.7 K/uL (0.1-1.0); MONOCYTES % (AUTO) 9.1 % (3.0-13.0); NEUTROPHILS # (AUTO) 3.6 K/uL (1.8-7.7); PLATELET COUNT (AUTO) 176 K/uL (130-400); RED BLOOD CELL COUNT(AUTO) 4.43 MIL/uL (4.50-6.20); RED CELL DISTRIBUTION WIDTH 12.2 % (11.0-15.5); WHITE BLOOD COUNT (AUTO) 7.3 K/uL (4.8-10.8)
[2024-05-12 04:25] LABS: ALBUMIN 3.1 g/dL (3.5-5.0); BILIRUBIN,TOTAL 1.1 mg/dL (0.2-1.0); MAGNESIUM 1.7 mg/dL (1.80-2.40); TOTAL PROTEIN, SERUM 6.5 g/dL (6.0-8.3)
[2024-05-12] MEDS: MAGNESIUM 2GM PREMIX 50ML 50 ML IV PRN (06:23)
[2024-05-12] MEDS: INSULIN HUMULIN R 100 UNIT/ML 3ML SQ SCH (06:24)
[2024-05-12] MEDS: FAMOTIDINE 20MG TAB PO SCH (09:09)
[2024-05-12] MEDS: ASPIRIN 81 MG EC TAB PO SCH (09:09)
[2024-05-12] MEDS ORDERED: PROCHLORPERAZINE 10MG/2ML INJ IV PRN (11:30)
[2024-05-12] MEDS ORDERED: DiphenhydrAMINE HCL 50 MG/ML VIAL IV PRN (11:30)
[2024-05-12] MEDS: KETOROLAC 15MG/ML VIAL (15MG/ML) IV PRN (12:04)
[2024-05-12] MEDS: SOTALOL HCL 80 MG TABLET PO SCH (12:09)
[2024-05-12] MEDS: APIXABAN 5 MG TABLET PO SCH (12:09)
[2024-05-12] MEDS: ATORVASTATIN 40 MG TABLET PO SCH (21:12)
[2024-05-13 00:20] VITALS: BP 125/68; PULSE 77; RESP 20
[2024-05-13] MEDS: CEFTRIAXONE 1G VIAL IVPB SCH (00:31)
[2024-05-13 03:32] LABS: BASOPHILS # (AUTO) 0.02 K/uL (0.00-0.20); BASOPHILS % (AUTO) 0.4 % (0.0-5.0); EOSINOPHILS # (AUTO) 0.12 K/uL (0.00-0.70); EOSINOPHILS % (AUTO) 2.2 % (0.0-8.0); HEMATOCRIT 35.5 % (42-54); IMMATURE GRANULOCYTE ABSOLUTE 0.01 K/uL (0-1); LYMPHOCYTES # (AUTO) 2.4 K/uL (1.0-4.8); LYMPHOCYTES % (AUTO) 45.3 % (21.0-51.0); MEAN CORPUSCULAR HEMOGLOBIN 30.5 pg (27.0-33.0); MEAN CORPUSCULAR HGB CONC 36.1 g/dL (32.0-36.0); MEAN CORPUSCULAR VOLUME 84.7 fL (79-99); MONOCYTES # (AUTO) 0.5 K/uL (0.1-1.0); MONOCYTES % (AUTO) 9.3 % (3.0-13.0); NEUTROPHILS # (AUTO) 2.3 K/uL (1.8-7.7); NEUTROPHILS % (AUTO) 42.6 % (40.0-77.0); PLATELET COUNT (AUTO) 163 K/uL (130-400); RED BLOOD CELL COUNT(AUTO) 4.19 MIL/uL (4.50-6.20); RED CELL DISTRIBUTION WIDTH 12.1 % (11.0-15.5); WHITE BLOOD COUNT (AUTO) 5.4 K/uL (4.8-10.8)
[2024-05-13 03:51] LABS: CREATININE 0.9 mg/dL (0.5-1.3); MAGNESIUM 1.9 mg/dL (1.80-2.40); POTASSIUM 3.8 mmol/L (3.5-5.1)
[2024-05-13 04:59] VITALS: BP 143/95; PULSE 86; RESP 20
[2024-05-13] MEDS: MAGNESIUM 2GM PREMIX 50ML 50 ML IV PRN (06:23)
[2024-05-13] MEDS: KCL 20 MEQ ERTAB PO PRN (06:23)
[2024-05-13 07:36] VITALS: BP 147/88; PULSE 73; RESP 16
[2024-05-13 08:00] VITALS: O2SAT 96
[2024-05-13] MEDS: VERAPAMIL HCL 120 MG PO SCH (09:00)
[2024-05-13] MEDS ORDERED: ASPIRIN 81 MG EC TAB PO SCH (09:00)
[2024-05-13 12:12] VITALS: BP 121/84; PULSE 69; RESP 16
[2024-05-13] MEDS ORDERED: DOXY100C5 PO (13:18)
[2024-05-13] MEDS ORDERED: AMOX-426 PO (13:18)
== END 2024-05-13 13:50 | disposition home or self-care (01) | DRG 308 ==
LOC: EDH 19:16 → EDHIP 23:55 → 2DH 05-12 02:10
PROVIDERS: ADMIT Internal Medicine; ATTEND Internal Medicine
DX: I48.0 Paroxysmal atrial fibrillation (principal); J18.9 Pneumonia, unspecified organism; I42.8 Other cardiomyopathies; Z20.822 Contact with and (suspected) exposure to COVID-19; E11.65 Type 2 diabetes mellitus with hyperglycemia; E83.42 Hypomagnesemia; I25.10 Atherosclerotic heart disease of native coronary artery without angina pectoris; E78.5 Hyperlipidemia, unspecified; I10 Essential (primary) hypertension; R51.9 Headache, unspecified; Z79.01 Long term (current) use of anticoagulants; Z79.82 Long term (current) use of aspirin; Z82.49 Family history of ischemic heart disease and other diseases of the circulatory system; Z83.3 Family history of diabetes mellitus; Z95.5 Presence of coronary angioplasty implant and graft
CPT/HCPCS: 36415; 71045; 80048; 80053; 80305; 81001; 82948; 83605; 83735; 83880; 84100; 84145; 84484; 85025; 85610; 85730; 87040; 87426; 87804; 93005; 96365; 96366; 96368; 96375; 99291; G0378; J0456; J0696; J1815; J1885; J3475; J3490; J7040

== ENCOUNTER 2025-01-09 09:03 | Emergency (ER) | payer BC, MEDICARE ==
[~2025-01-09] VITALS: Ht 180.3 cm; Wt 89.8 kg
[~2025-01-09 09:03] MED LIST changes: +AMOX-426 PO; -ATOR-2 PO; +ATOR40TA71 PO; +DOXY100C5 PO; -METF-446 PO; +METF-526 PO; +SOTA80TA PO; +VERA120C3 PO
[2025-01-09 09:10] VITALS: BP 137/98; PULSE 75; RESP 20; TEMP 97.5; O2SAT 100
[2025-01-09 10:02] LABS: INFLUENZA TYPE A Negative For Type A (NEGATIVE)
--- NOTE | 2025-01-09 10:15 | ERN ---
ED Note History of Present Illness Stated Complaint: GEN BODY WEAKNESS Chief Complaint: Flu Symptoms Time Seen by MD: 09:05 Dictation: 69-year-old male who presented to the ER complaining of shortness breath, stated the he was positive for flu 1 week ago. Allergies: Coded Allergies: No Known Allergies (Unverified Allergy, Unknown, 01/27/19) Home Meds Active Scripts Azithromycin (Azithromycin) 250 Mg Tablet, 1 TAB PO AD for 5 Days, #6 TAB 0 Refills 2 the first day followed by 1 for days 2-5 Prov:SHAHRZAD BLOUNT MD 01/09/25 Acetaminophen (Tylenol) 500 Mg Tab, 1 TAB PO Q6HPRN PRN for pain or fever for 5 Days, #20 TAB 0 Refills Prov:SHAHRZAD BLOUNT MD 01/09/25 Oseltamivir Phosphate (Tamiflu Susp) 75 Mg Susp, 1 CAP PO BID for 5 Days, #10 CAP 0 Refills Prov:SHAHRZAD BLOUNT MD 01/09/25 Doxycycline Hyclate (Doxycycline Hyclate) 100 Mg Capsule, 100 MG PO BID for 7 Days, #14 CAP Prov:LAST LOPEZ MD 05/13/24 Amoxicillin/Potassium Clav (Augmentin 500-125 Tablet) 500 Mg-125 Mg Tablet, 1 EACH PO TID for 7 Days, #21 TAB Prov:LAST LOPEZ MD 05/13/24 Reported Medications Atorvastatin Calcium (Atorvastatin Calcium) 40 Mg Tablet, 40 MG PO HS, TAB 05/12/24 Sotalol HCl (Sotalol) 80 Mg Tablet, 80 MG PO BID, TAB 05/12/24 Verapamil HCl (Verapamil Sr) 120 Mg Cap24h.pel, 120 MG PO DAILY 05/12/24 Apixaban (Eliquis) 5 Mg Tablet, 5 MG PO BID, TAB 05/12/24 Metformin HCl (Metformin HCl ER) 500 Mg Tab.er.24, 1000 MG PO ACDINNER 05/12/24 Semaglutide (Rybelsus) 7 Mg Tablet, 7 MG PO DAILY, TAB 08/22/23 Ascorbic Acid (Vitamin C) 500 Mg Capsule, 500 MG PO DAILY, CAP 08/21/23 Aspirin (ASPIRIN 81 MG ECTAB) 81 Mg Ectab, 81 MG PO DAILY, TAB.EC 08/24/22 Metoprolol Tartrate (Metoprolol Tartrate) 50 Mg Tablet, 50 MG PO BID, TAB 08/24/22 Cholecalciferol (Vitamin D3) (Vitamin D3) 25 Mcg Capsule, 25 MCG PO DAILY, CAP 07/02/22 Past Medical History Past Medical History: A-Fib, Diabetes-Type II Additional Past Medical Hx: IRREGULAR HEART BEAT, PSVT, SVT, Surgical History: Other Surgical History Other: FELIPE SHOULDER SURGERY Family History: Negative Social History: Negative, Lives with family, Other Review of System Dictation NEGATIVE EXCEPT PER HPI Constitutional: Negative for fever,chills, and weight loss Eyes: Negative for injury, pain,redness, and discharge ENT: Negative for injury,pain or swelling Cardiovascular: denies chest pain, palpitations, and edema Respiratory: Shortness breath reported Abdomen/GI: Negative for abdominal pain, nausea, vomiting, diarrhea, and constipation Back: Negative for injury and pain : Negative for injury, bleeding and discharge MS/Extremity: Negative for injury and deformity Skin: Negative for rash, and discoloration Neuro: Negative for headache, weakness, numbness, tingling, and seizure Psych: Negative for suicide ideation, homicidal ideation, and hallucinations Initial Vital Sign VS Vital Signs Date Time Temp Pulse Resp B/P (MAP) Pulse Ox O2 Delivery O2 Flow Rate FiO2 01/09/25 09:05 97.5 75 20 137/98 100 Room Air 0 01/09/25 09:10 21 Physical Exam Dictation General: awake, alert, NAD Head/Face: Normocephalic, atraumatic Eyes: PERRL, EOMI, vision at baseline ENT: oral cavity clear, TMs clear, no signs of infection Neck: Trachea midline, supple, no nuchal rigidity Cardiovascular: RRR, normal S1/S2, No MRGs, no JVD Respiratory: CTAB, no respiratory distress, No rales or wheezes Abdomen: Soft , no tender Skin: Warm, dry, normal turgor, no rash MS/Extremity: Pulses equal, no cyanosis, neurovascular intact, FROM Neuro: COAx4, GCS 15, strength 5/5, CN 2-12 intact, normal cerebellar exam, normal gait, Psych: Normal behavior, mood, and affect normal Results (Laboratory/Radiology) Laboratory/Radiology Laboratory Tests Test 01/09/25 09:20 01/09/25 10:40 Influenza Type A Antigen Negative For Type A Influenza Type B Antigen Positive For Type B SARS-CoV-2, RNA, NAAT NEGATIVE SARS CoV-2 White Blood Count 4.8 K/uL (4.8-10.8) Red Blood Count 4.90 MIL/uL (4.50-6.20) Hemoglobin 15.0 g/dL (14.0-18.0) Hematocrit 41.2 % (42-54) L Mean Corpuscular Volume 84.1 fL (79-99) Mean Corpuscular Hemoglobin 30.6 pg (27.0-33.0) Mean Corpuscular Hemoglobin Concent 36.4 g/dL (32.0-36.0) H Red Cell Distribution Width 12.3 % (11.0-15.5) Platelet Count 166 K/uL (130-400) Mean Platelet Volume 9.2 fL (7.5-10.5) Immature Granulocyte % (Auto) 0.2 % (0-1) Neutrophils (%) (Auto) 44.1 % (40.0-77.0) Lymphocytes (%) (Auto) 47.2 % (21.0-51.0) Monocytes (%) (Auto) 7.3 % (3.0-13.0) Eosinophils (%) (Auto) 0.8 % (0.0-8.0) Basophils (%) (Auto) 0.4 % (0.0-5.0) Neutrophils # (Auto) 2.1 K/uL (1.8-7.7) Lymphocytes # (Auto) 2.3 K/uL (1.0-4.8) Monocytes # (Auto) 0.4 K/uL (0.1-1.0) Eosinophils # (Auto) 0.04 K/uL (0.00-0.70) Basophils # (Auto) 0.02 K/uL (0.00-0.20) Absolute Immature Granulocyte (auto 0.01 K/uL (0-1) Nucleated Red Blood Cells 0.0 % (0.0-0.19) Red Blood Cell Morphology See comments Sodium Level 138 mmol/L (136-145) Potassium Level 4.3 mmol/L (3.5-5.1) Chloride Level 102 mmol/L (101-111) Carbon Dioxide Level 28 mmol/L (21-32) Blood Urea Nitrogen 14 mg/dL (7-18) Creatinine 1.0 mg/dL (0.5-1.3) Glomerular Filtration Rate Calc 82 mL/min (>90) Random Glucose 156 mg/dL (70-105) H Total Calcium 9.0 mg/dL (8.5-10.1) ED Course ED Course Orders Procedure Category Date Status Time Influenza Type A & B, LAB 01/09/25 Complete Rapid 09:17 Covid Rna Naat LAB 01/09/25 Complete 09:17 Cbc With Differential LAB 01/09/25 Complete 10:09 Basic Metabolic Panel LAB 01/09/25 Complete 10:09 Chest 1vw RAD 01/09/25 Resulted 10:13 Oseltamivir Phosphate PHA 01/09/25 Complete (Tamiflu) 11:00 Current Medications Medications (Trade) Dose Ordered Sig/Leonidas Route PRN Reason Start Time Stop Time Status Last Admin Dose Admin Oseltamivir Phosphate (Tamiflu) 75 mg ONCE ONCE PO 01/09/25 11:00 01/09/25 11:01 DC Vital Signs Date Time Temp Pulse Resp B/P (MAP) Pulse Ox O2 Delivery O2 Flow Rate FiO2 01/09/25 09:10 97.5 75 20 137/98 100 Room Air* 0 21 01/09/25 09:05 97.5 75 20 137/98 100 Room Air 0 Medical Decision Making MDM 69-year-old male with a history of flu, comes to ER complaining of shortness of breaths. Pneumonia Flu Chest x-ray ordered Laboratory negative for leukocytosis. The patient still positive for food. He is on Tamiflu at home, he must continue medication and azithromycin was added to patient's medical treatment. DX & DISP Disposition: Discharge Departure Impression: Primary Impression: Flu Additional Impressions: SOB (shortness of breath), Pneumonia Condition: Stable Scripts Azithromycin (Azithromycin) 250 Mg Tablet 1 TAB PO AD for 5 Days, #6 TAB 0 Refills 2 the first day followed by 1 for days 2-5 Prov: SHAHRZAD BLOUNT MD 01/09/25 Acetaminophen (Tylenol) 500 Mg Tab 1 TAB PO Q6HPRN PRN for pain or fever for 5 Days, #20 TAB 0 Refills Prov: SHAHRZAD BLOUNT MD 01/09/25 Oseltamivir Phosphate (Tamiflu Susp) 75 Mg Susp 1 CAP PO BID for 5 Days, #10 CAP 0 Refills Prov: SHAHRZAD BLOUNT MD 01/09/25 Additional Instructions: RETURN TO ER FOR ANY ACUTE OR WORSENING SYMPTOMS. FOLLOW-UP IN 1-2 DAYS WITH PRIMARY PROVIDER FOR RECHECK OF TODAY'S SYMPTOMS. Referrals: GARRICK OMER (PCP) Time of Disposition: 11:05 SHAHRZAD BLOUNT MD Jan 09, 2025 10:15
[2025-01-09 10:30] LABS: SARS-CoV-2, RNA, NAAT NEGATIVE SARS CoV-2 (NEGATIVE)
[2025-01-09 10:34] LABS: INFLUENZA TYPE B Positive For Type B (NEGATIVE)
[2025-01-09 10:56] LABS: BASOPHILS # (AUTO) 0.02 K/uL (0.00-0.20); BASOPHILS % (AUTO) 0.4 % (0.0-5.0); EOSINOPHILS # (AUTO) 0.04 K/uL (0.00-0.70); EOSINOPHILS % (AUTO) 0.8 % (0.0-8.0); HEMATOCRIT 41.2 % (42-54); IMMATURE GRANULOCYTE ABSOLUTE 0.01 K/uL (0-1); LYMPHOCYTES # (AUTO) 2.3 K/uL (1.0-4.8); LYMPHOCYTES % (AUTO) 47.2 % (21.0-51.0); MEAN CORPUSCULAR HEMOGLOBIN 30.6 pg (27.0-33.0); MEAN CORPUSCULAR HGB CONC 36.4 g/dL (32.0-36.0); MEAN CORPUSCULAR VOLUME 84.1 fL (79-99); MONOCYTES # (AUTO) 0.4 K/uL (0.1-1.0); MONOCYTES % (AUTO) 7.3 % (3.0-13.0); NEUTROPHILS # (AUTO) 2.1 K/uL (1.8-7.7); NEUTROPHILS % (AUTO) 44.1 % (40.0-77.0); PLATELET COUNT (AUTO) 166 K/uL (130-400); RED CELL DISTRIBUTION WIDTH 12.3 % (11.0-15.5); WHITE BLOOD COUNT (AUTO) 4.8 K/uL (4.8-10.8)
[2025-01-09] MEDS ORDERED: ACET-66 PO (11:07)
[2025-01-09] MEDS ORDERED: OSELT15L PO (11:07)
[2025-01-09 11:12] LABS: POTASSIUM 4.3 mmol/L (3.5-5.1)
[2025-01-09] MEDS: OSELTAMIVIR PHOSPHATE 75 MG CAP PO ONE (11:20)
[2025-01-09] MEDS ORDERED: AZIT250T9 PO (11:37)
--- NOTE | 2025-01-09 11:51 | HMCIMG ---
CHEST 1VW CLINICAL HISTORY: SOB COMPARISON: 05/11/2024 TECHNIQUE: Single view of the chest was obtained. FINDINGS: Lungs are clear. The cardiac size and mediastinum are unremarkable. The bony structures are within normal limits. IMPRESSION: No acute cardiopulmonary process identified.
== END 2025-01-09 12:04 | disposition home or self-care (01) ==
LOC: EDH 09:03
DX: J18.9 Pneumonia, unspecified organism (principal); E11.9 Type 2 diabetes mellitus without complications; Z20.822 Contact with and (suspected) exposure to COVID-19; Z79.01 Long term (current) use of anticoagulants; Z79.82 Long term (current) use of aspirin; Z79.899 Other long term (current) drug therapy
CPT/HCPCS: 36415; 71045; 80048; 85025; 87635; 87804; 99283

== ENCOUNTER 2025-04-21 05:09 | Emergency (ER) | payer BC, MEDICARE ==
[~2025-04-21] VITALS: Ht 177.8 cm; Wt 97.1 kg
[~2025-04-21 05:09] MED LIST changes: +ACET-66 PO; +AZIT250T9 PO; +OSELT15L PO
--- NOTE | 2025-04-21 05:30 | ERN ---
General Chief Complaint: Neck Pain Stated Complaint: C/O NECK PAIN ONSET SATURDAY Time Seen by MD: 05:25 Source: patient History of Present Illness Initial Comments Patient is a 69-year-old male with known heart disease who has had left sided neck pain that started Saturday. The pain makes it difficult for him to get out of bed sometimes in the mornings. He is here in the emergency room to make sure his neck pain is not a sign of cardiac disease. He is otherwise asymptomatic, no chest pain no shortness of breath no chest pressure no cough. He is asking for a chest x-ray or something to make sure it is not my heart . Allergies: Coded Allergies: No Known Allergies (Unverified Allergy, Unknown, 01/27/19) Home Meds Active Scripts Azithromycin (Azithromycin) 250 Mg Tablet, 1 TAB PO AD for 5 Days, #6 TAB 0 Refills 2 the first day followed by 1 for days 2-5 Prov:SHAHRZAD BLOUNT MD 01/09/25 Acetaminophen (Tylenol) 500 Mg Tab, 1 TAB PO Q6HPRN PRN for pain or fever for 5 Days, #20 TAB 0 Refills Prov:SHAHRZAD BLOUNT MD 01/09/25 Oseltamivir Phosphate (Tamiflu Susp) 75 Mg Susp, 1 CAP PO BID for 5 Days, #10 CAP 0 Refills Prov:SHAHRZAD BLOUNT MD 01/09/25 Doxycycline Hyclate (Doxycycline Hyclate) 100 Mg Capsule, 100 MG PO BID for 7 Days, #14 CAP Prov:LAST LOPEZ MD 05/13/24 Amoxicillin/Potassium Clav (Augmentin 500-125 Tablet) 500 Mg-125 Mg Tablet, 1 EACH PO TID for 7 Days, #21 TAB Prov:LAST LOPEZ MD 05/13/24 Reported Medications Atorvastatin Calcium (Atorvastatin Calcium) 40 Mg Tablet, 40 MG PO HS, TAB 05/12/24 Sotalol HCl (Sotalol) 80 Mg Tablet, 80 MG PO BID, TAB 05/12/24 Verapamil HCl (Verapamil Sr) 120 Mg Cap24h.pel, 120 MG PO DAILY 05/12/24 Apixaban (Eliquis) 5 Mg Tablet, 5 MG PO BID, TAB 05/12/24 Metformin HCl (Metformin HCl ER) 500 Mg Tab.er.24, 1000 MG PO ACDINNER 05/12/24 Semaglutide (Rybelsus) 7 Mg Tablet, 7 MG PO DAILY, TAB 08/22/23 Ascorbic Acid (Vitamin C) 500 Mg Capsule, 500 MG PO DAILY, CAP 08/21/23 Aspirin (ASPIRIN 81 MG ECTAB) 81 Mg Ectab, 81 MG PO DAILY, TAB.EC 08/24/22 Metoprolol Tartrate (Metoprolol Tartrate) 50 Mg Tablet, 50 MG PO BID, TAB 08/24/22 Cholecalciferol (Vitamin D3) (Vitamin D3) 25 Mcg Capsule, 25 MCG PO DAILY, CAP 07/02/22 Past Medical History Past Medical History: Diabetes-Type II, High Cholesterol, Heart Disease, Hypertension, Other Medical History Other: IRREGULAR HEARTBEAT Past Surgical History: Other Surgical History Other: HEART ABLATION Family History Family History: Negative Social History Social History: Negative, Lives with family, Other Constitutional: (-) chills, (-) diaphoresis, (-) fever, (-) malaise, (-) weakness, (-) other documentation EENTM: (-) eye pain, (-) blurred vision, (-) tearing, (-) double vision, (-) ear pain, (-) ear discharge, (-) nose pain, (-) nose congestion, (-) throat pain, (-) Throat swelling, (-) mouth pain, (-) tooth pain, (-) mouth swelling, (-) other documentation Respiratory: (-) cough, (-) orthopnea, (-) short of breath, (-) stridor, (-) wheezing, (-) other documentation Cardiovascular: (-) chest pain, (-) edema, (-) palpitations, (-) syncope, (-) dyspnea on exertion, (-) other documentation Gastrointestinal/Abdominal: (-) nausea, (-) vomiting, (-) diarrhea, (-) abdominal pain, (-) abdominal distention, (-) constipation, (-) rectal bleeding, (-) dark stool/melena, (-) other documentation Musculoskeletal: (+) Neck pain Skin: (-) laceration, (-) contusion, (-) abrasion, (-) abscess, (-) rash, (-) change in color, (-) change in hair, (-) change in nails, (-) diaphoresis, (-) dryness, (-) other documentation Neuro: (-) altered mental status, (-) headache, (-) syncope, (-) paralysis, (-) numbness, (-) seizure, (-) pre-existing deficit, (-) tremors, (-) weakness, (-) dizziness, (-) slurred speech, (-) vertigo, (-) other documentation Physical Exam General Appearance: (+) mild distress Orientation: (+) oriented x 3 Head/Face Trauma: No Eye: bilateral eye normal inspection, bilateral eye PERRL, bilateral eye EOMI Ear, Nose, Throat: (+) hearing grossly normal Neck: (+) normal inspection, (+) limited range of motion, (+) tender lateral Neck Comment I palpated the patient's left paraspinal neck muscle and it was very taut. When I pushed on the muscle the patient grabbed my hand and flinched strongly away because of the pain. Results Laboratory and Microbiology Lab and Micro Result Laboratory Tests Test 04/21/25 06:09 Troponin I High Sensitivity 7 ng/L (4-75) MDM Based on my physical exam I strongly suspect the patient has a neck sprain and his left neck pain is not related to any kind of cardiac disease. To allay the patient's concerns I will get a EKG and a single troponin. I will also give him a muscle relaxant. Patient's troponin is negative and EKG shows no ST-elevation. The muscle relaxant really has not helped the patient but I see him massaging his neck. I will discharge the patient from the ED. ED Course Orders Procedure Category Date Status Time 12 Lead Ekg Tracing- EKG 04/21/25 Logged Technical 05:30 Troponin I High LAB 04/21/25 Complete Sensitivity 05:30 Methocarbamol PHA 04/21/25 Complete (Methocarbamol) 05:30 Current Medications Medications (Trade) Dose Ordered Sig/Leonidas Route PRN Reason Start Time Stop Time Status Last Admin Dose Admin Methocarbamol (methoCARBamol) 500 mg ONCE ONCE PO 04/21/25 05:30 04/21/25 05:33 DC 04/21/25 05:43 Vital Signs Date Time Temp Pulse Resp B/P (MAP) Pulse Ox O2 Delivery O2 Flow Rate FiO2 04/21/25 06:35 98.1 76 17 147/90 99 Room Air* 0 21 04/21/25 05:27 97.9 99 19 155/88 99 Room Air* 0 21 04/21/25 05:10 96.8 67 20 154/94 99 Room Air DX & DISP Disposition: Discharge Departure Impression: Primary Impression: Neck muscle spasm Condition: Stable Scripts Cyclobenzaprine HCl (Flexeril) 10 Mg Tab 10 MG PO TID for muscle sstiffness, #14 TAB 0 Refills Prov: ROB RASCON MD 04/21/25 Additional Instructions: Continue to massage your neck. Warm compresses will help as well. I have written a prescription for muscle relaxant which she can picket labor union at your pharmacy. Referrals: GARRICK OMER [facility] (PCP) ROB RASCON MD April 21, 2025 05:29
[2025-04-21] MEDS: methoCARBamol 500 MG TABLET PO ONE (05:43)
[2025-04-21 06:35] VITALS: BP 147/90; PULSE 76; RESP 17; TEMP 98.1; O2SAT 99
[2025-04-21] MEDS ORDERED: CYCL10TA16 PO (06:44)
--- NOTE | 2025-04-21 07:00 | EKG ---
[facility] Test Date: 2025-04-21 Test Time: 06:14:00 Pat Name: TIMOTHY LR Department: ED Room: Gender: M [employer] Member: [id number] : 1955 Requested By: ROB RASCON Order Number: [id number] Reading MD: Monty Cruz Measurements Intervals [place] Rate: 65 P: 2 LA: 199 QRS: -20 QRSD: 89 T: 96 QT: 407 QTc: 423 Interpretive Statements Sinus rhythm Inferior infarct, old Nonspecific T abnormalities, lateral leads Compared to ECG 05/12/2024 10:21:07 Myocardial infarct finding now present T-wave abnormality now present Electronically Signed On 04-22-2025 15:42:35 CDT by Monty Cruz Please click the below link to view image of tracing.
== END 2025-04-21 06:49 | disposition home or self-care (01) ==
LOC: EDH 05:09
DX: M62.838 Other muscle spasm (principal); E11.9 Type 2 diabetes mellitus without complications; E78.00 Pure hypercholesterolemia, unspecified; I10 Essential (primary) hypertension; Z79.01 Long term (current) use of anticoagulants; Z79.82 Long term (current) use of aspirin; Z79.899 Other long term (current) drug therapy
CPT/HCPCS: 84484; 93005; 99284